=== PATIENT | male | born 2000 | race Caucasian/White ===

== ENCOUNTER 2024-10-24 02:43 | Emergency (ER) | payer MEDICAID, SELFPAY ==
[2024-10-24] VITALS (11 sets, daily range): BP systolic 126–161; BP diastolic 87–106; PULSE 77–97; RESP 12–20; TEMP 36.8–37.1; O2SAT 98–100; BMI 30.5
--- NOTE | 2024-10-24 02:51 | XR_ITS ---
PROCEDURE INFORMATION: Exam: XR Chest Exam date and time: 10/24/2024 3:09 AM Age: 23 years old Clinical indication: Pain; Chest pressure; Additional info: Cp 8 hours ago TECHNIQUE: Imaging protocol: Radiologic exam of the chest. Views: 1 view. COMPARISON: No relevant prior studies available. FINDINGS: Lungs: Unremarkable. No consolidation. Pleural spaces: Unremarkable. No pleural effusion. No pneumothorax. Heart/Mediastinum: Unremarkable. No cardiomegaly. Bones/joints: Unremarkable. IMPRESSION: No acute findings.
--- NOTE | 2024-10-24 02:54 | ED_ITS ---
Discharge Plan Disposition Patient Disposition: Home, Self-Care Condition: Good Prescriptions Prescriptions: New levetiracetam [Keppra] 750 mg tablet 750 mg PO BID 10 Days Qty: 20 0RF Activity Restrictions/Add. Instructions Additional Instructions/Restrictions: You were evaluated in the ER and are appropriate for discharge at this time. Take the prescribed levetiracetam as directed. In the future, never skip doses or stop taking the medication unless directed by your neurologist. couples therapist the prescription and start taking it immediately. Call your neurologist for follow-up. Return to the ER with new, worsening, or otherwise concerning symptoms. Clinical Impressions Clinical Impression: Seizure, Noncompliance with medication regimen Instructions Patient Instructions: DI for Seizure Disorder -- Adult Print Language Print Language: Argentine Discharge ED Provider: Gely Carey Adult HPI General Chief complaint: Seizure Stated complaint: Seizure Time Seen by Provider: 10/24/24 02:45 Mode of Arrival: Ambulatory Source of Information: Patient Limitations: No Limitations Description of Symptoms (Recalled from ER Triage Doc. by RN): PT C/O SEIZURE LASTING APPROX 5-6 MIN, WITNESSED BY SIGNIFICANT OTHER. SEIZURE STARTED WHILE IN SITTING POSITION, DENIES HITTING HEAD. PT NONCOMPLIANT WITH MEDICATION. PT POSTICTAL, A&OX4 History of Present Illness HPI narrative: 23-year-old male with known history of seizure who is supposed to take daily Keppra presents to the ER for concern of generalized tonic-clonic seizure activity lasting 5 to 6 minutes. Patient had postictal period but is recovering. Reportedly did not hit his head according to bystanders were present at bedside. Reportedly patient has not been taking his Keppra recently because he had not had seizures in many years and did not think he needed it. He had 1 episode of seizure yesterday, when he had seizure tonight, family made him come to the ER for evaluation. Patient denies any recent illness. Family reports patient had been intermittently complaining of chest pain yesterday as well as approximately 8 hours prior to arrival. Reportedly the chest pain is not associated with anything specific and he is not actively having chest pain. No cough, congestion, difficulty breathing, fevers, chills, vomiting, diarrhea, or other associated symptoms. Patient has been eating and drinking normally. No other concerns. Related Data Previous Rx's ?Medication ?Instructions ?Recorded levetiracetam 750 mg tablet 750 mg PO BID 10 days #20 tabs 10/24/24 (Keppra) Allergies Allergy/AdvReac Type Severity Reaction Status Date / Time No Known Allergies Allergy Verified 10/24/24 02:53 [facility] Disclaimer: The information contained in this section may have been updated after the patient was seen, as this information can be updated by other users. Medical History (Updated 10/24/24 @ 03:28 by Gely Carey MD) Seizure Social History Smoking Status: Never smoker alcohol intake: never current occupational status: other Travel in the last 8 weeks: None ROS Obtained: Yes Systems reviewed as appropriate & no additional complaints except as documented Per HPI Physical Exam General General appearance: alert and in no apparent distress Head Head exam: atraumatic and normocephalic Eye Eye exam: Present PERRL and EOMI ENT ENT exam: Present mucous membranes moist Neck Neck exam: Present normal inspection and full ROM Chest Chest inspection: Present symmetric chest wall rise Respiratory Respiratory exam: Present normal lung sounds bilaterally; Absent respiratory distress, wheezes or stridor Cardiovascular Cardiovascular exam: Present regular rate and normal rhythm Abdominal Exam Abdominal exam: Present soft; Absent distention, tenderness, guarding or rebound Extremities Exam Extremities exam: Present full ROM; Absent tenderness, edema or joint swelling Neurological Exam Neurological exam: Present alert, oriented X3, normal gait and other (Ambulated independently into the ER); Absent motor sensory deficit Psychiatric Psychiatric exam: Present normal affect and normal mood Skin Skin exam: Present warm and dry Medical Decision Making Medical Records Screening: Per USPSTF and CDC recommendations, given the prevalence of disease in our region, it is our hospital?s policy to screen for HIV and viral Hepatitis for all patients aged 18 and over and those with ongoing risk factors. Jim Inquiry Pt receiving controlled substance: No Vital Signs: 10/24/24 02:43 10/24/24 02:50 10/24/24 02:55 Temperature 98.7 F Temperature Source Tympanic Pulse Rate 86 77 Pulse Rate [Apical] 95 H Respiratory Rate 20 16 14 Blood Pressure 145/106 H 132/90 Blood Pressure [Right Arm] 161/101 H Blood Pressure Mean [Right Arm] 121 Blood Pressure Source Blood Pressure Position 02 Sat by Pulse Oximetry 99 99 98 Oxygen Delivery Method Room Air Room Air Room Air 10/24/24 03:00 10/24/24 03:05 10/24/24 03:10 Temperature Temperature Source Pulse Rate 81 84 89 Pulse Rate [Apical] Respiratory Rate 13 12 16 Blood Pressure 142/95 H 133/96 H 126/100 H Blood Pressure [Right Arm] Blood Pressure Mean [Right Arm] Blood Pressure Source Blood Pressure Position 02 Sat by Pulse Oximetry 98 99 99 Oxygen Delivery Method Room Air Room Air Room Air 10/24/24 03:29 Temperature 98.2 F Temperature Source Oral Pulse Rate 88 Pulse Rate [Apical] Respiratory Rate 20 Blood Pressure 141/95 H Blood Pressure [Right Arm] Blood Pressure Mean [Right Arm] Blood Pressure Source Automatic Cuff Blood Pressure Position Supine 02 Sat by Pulse Oximetry Oxygen Delivery Method Room Air Lab Data Lab Results 10/24/24 02:45: WBC 7.9, RBC 5.60, Hgb 16.1, Hct 48.3, MCV 86.3, MCH 28.8, MCHC 33.3, RDW 12.7, Plt Count 366, MPV 8.6, Neut % (Auto) 58.8, Lymph % (Auto) 29.0, [place] % (Auto) 8.7, Eos % (Auto) 2.4, Baso % (Auto) 0.8, Neut # (Auto) 4.7, Lymph # (Auto) 2.3, [place] # (Auto) 0.7, Eos # (Auto) 0.2, Baso # (Auto) 0.1, Sodium 140, Potassium 3.9, Chloride 97 L, Carbon Dioxide 30, Anion Gap 16.9 H, BUN 19, Creatinine 0.70, Estimated Creat Clear 210, Estimated GFR 139, Est GFR ( Amer) 168, Glucose 105 H, Calcium 9.9, Total Bilirubin 0.5, AST 40, ALT 53, Alkaline Phosphatase 84, Troponin I < 0.01, Total Protein 8.2, Albumin 5.2 H, Globulin 3.0, Albumin/Globulin Ratio 1.7 10/24/24 02:45 10/24/24 02:45 Orders (Tests/Meds): ED MEDICATIONS Discontinued Medications Generic Name Dose Route Start Last Admin Trade Name Freq PRN Reason Stop Dose Admin Levetiracetam 2,000 mg/ Sodium 120 mls @ 240 mls/hr 10/24/24 02:52 10/24/24 02:58 Chloride IV 10/24/24 02:53 240 mls/hr ONCE ONE Administration ORDERS Category Date Time Status CXR --portable [XR chest portable] Stat Exams 10/24/24 02:51 Taken CBC w/Auto Diff [Complete Blood Count Auto Diff] Stat Lab 10/24/24 02:45 Completed CMP [Comprehensive Metabolic Panel] Stat Lab 10/24/24 02:45 Completed Trop I [Troponin I] Stat Lab 10/24/24 02:45 Completed Troponin I Q3H Lab 10/24/24 06:00 Ordered Troponin I Q3H Lab 10/24/24 09:00 Ordered ECG Request Stat Y 10/24/24 02:51 Completed Medical Decision Narrative: In summary, this 23-year-old male with known seizure history who has been noncompliant with medication recently presents to the emergency department today with seizure activity. On initial evaluation patient is hemodynamically stable, afebrile, GCS 15, no neurologic deficits, physical exam overall is benign, he reportedly had chest pain 8 hours or more prior to arrival and has not had pain since. No other complaints or concerns. Patient has benign cardiopulmonary exam, no neurologic abnormalities, no abnormalities identified on exam overall. Differential diagnosis includes but is not limited to medication noncompliance, breakthrough seizure, I considered electrolyte abnormality, ACS, esophageal spasm, pneumothorax, pneumonia, I considered PE but patient is PERC negative and further PE workup is not indicated. Denies illicit substances but this was also considered. Based on these concerns, I ordered serum labs, chest x-ray, EKG. Family at bedside provided a picture of patient's home medication which is levetiracetam 750 mg twice daily. Reportedly they are traveling from out of town and will not be back home until Wednesday. ECG personally interpreted demonstrates normal sinus rhythm, rate 76, normal axis, normal NH and QTc, no STEMI. Patient received IV Keppra for treatment. Labs personally reviewed demonstrate Normal CBC, CMP nonactionable, troponin undetectably low which is significantly reassuring in the setting of normal EKG, no recent chest pain, no ongoing chest pain, and low suspicion for cardiac etiology. Do not believe serial troponins are indicated at this time. Chest x-ray personally interpreted does not demonstrate acute intrathoracic abnormality, see radiology read for final interpretation. On reassessment, patient tolerated the IV Keppra well, he is resting comfortably, no additional seizure activity, no chest pain. Workup is reassuring. Since patient is traveling from out of town and does not have access to his home medication at this time and will not for multiple more days, I prescribed a short course of his home dose levetiracetam for him to flower buncher or picker the local pharmacy that they chose. Patient and family are comfortable with this plan. He was given instructions to avoid driving, bathing, swimming, etc., standard seizure precautions. Also given explicit instructions to take the levetiracetam as prescribed as well as to call his neurologist for outpatient follow-up, he also received strict return precautions for the ER. Patient decayed understanding and was discharged in stable condition. Critical Care Critical Care Time Critical Care Time: No
[2024-10-24 02:58] LABS: Basophils # 0.1 K/mm3 (0-0.2); Basophils % 0.8 % (0.1-2.0); Eosinophils # 0.2 K/mm3 (0.0-0.4); Eosinophils % 2.4 % (0.1-12.0); Hematocrit 48.3 % (42.0-52.0); Hemoglobin 16.1 g/dL (14.1-18.0); Lymphocytes # 2.3 K/mm3 (0.7-4.5); Mean Corpuscular HGB Conc 33.3 g/dL (31.8-35.4); Mean Corpuscular Hemoglobin 28.8 pg (27.0-31.2); Mean Corpuscular Volume 86.3 fl (80-94); Mean Platelet Volume 8.6 fl (7.4-10.4); Monocytes # 0.7 K/mm3 (0.1-1.0); Monocytes % 8.7 % (1.7-9.3); Neutrophils # 4.7 K/mm3 (1.8-7.8); Neutrophils % 58.8 % (37.0-80.0); Platelet Count 366 K/mm3 (142-424); Red Cell Distribution Width 12.7 % (11.5-17.5); White Blood Count 7.9 K/mm3 (4.8-10.8)
[2024-10-24] MEDS: levETIRAcetam 2,000 MG in 0.9 % SODIUM CHLORIDE 100 ML 240 MG IV (02:58)
[2024-10-24 03:04] LABS: Alanine Aminotransferase 53 U/L (12-78); Albumin Level 5.2 g/dl (3.5-5.0); Albumin/Globulin Ratio 1.7 (1.1-1.8); Alkaline Phosphatase 84 U/L (38-126); Anion Gap 16.9 mEq/L (5-15); Aspartate Amino Transferase 40 U/L (17-59); Bilirubin,Total 0.5 mg/dl (0.2-1.3); Blood Urea Nitrogen 19 mg/dl (9-20); Calcium 9.9 mg/dl (8.4-10.2); Carbon Dioxide 30 mmol/L (22.0-30.0); Chloride 97 mmol/L (98-107); Creatinine Clearance Estimated 210 mL/min (50-200); Estimated Glomerular Filt Rate 139 ml/min (>60); GFR (African American) 168 ML/MIN (>60); Glucose 105 mg/dl (74-100); Potassium 3.9 mmoL/L (3.5-5.1); Sodium 140 mmol/L (136-145); Total Protein,Serum 8.2 g/dl (6.3-8.2)
--- NOTE | 2024-10-24 03:06 | ECG_ITS ---
APPROVED REPORT Exam: Resting ECG HR:76 bpm ECG Measurements Heart Rate 76 AXES IN 157 P 38 QRSd 91 QRS 16 QT 359 T 21 QTc 389 Conclusion SINUS RHYTHM NORMAL ECG Electronically signed by : AMRITA MENDOZA, 10/24/2024 06:55:20
--- NOTE | 2024-10-24 03:10 | PC.NURSE ---
PT WAS PLACED ON SEIZURE PRECAUTIONS STARTING AT 0243 DURING TRIAGE. PADDING BUCK TO SIDE RAILS, SUCTION SET UP AND WORKING APPROPRIATELY, ON [employer] SALES REPRESENTATIVE, CALL LIGHT WITHIN REACH. FAMILY PRESENT AT BEDSIDE. PT HAS NO COMPLAINTS AT THIS TIME AND IS RESTING COMFORTABLY. PROVIDER AWARE
[2024-10-24 03:16] LABS: Troponin I < 0.01 ng/ml (0.00-0.034)
--- NOTE | 2024-10-24 03:33 | PC.NURSE ---
Pt's IV D/C'd Catheter intact bleeding controlled
== END 2024-10-24 03:34 | disposition home or self-care (01) ==
PROVIDERS: Emergency Provider Emergency Medicine
DX: R56.9 Unspecified convulsions (principal); Z91.148 Patient's other noncompliance with medication regimen for other reason
CPT/HCPCS: 71045; 80053; 84484; 85025; 93005; 96374; 99283; J1953

== ENCOUNTER 2024-10-25 06:13 | Emergency (ER) | payer MEDICAID, SELFPAY ==
[2024-10-25] VITALS (7 sets, daily range): BP systolic 121–153; BP diastolic 82–95; PULSE 77–99; RESP 15–29; TEMP 36.7–36.8; O2SAT 98–100; BMI 26.9
--- NOTE | 2024-10-25 06:10 | CT_ITS ---
FINAL REPORT TECHNIQUE: Thin section axial images were obtained from skull base to vertex without contrast. Coronal and sagittal reconstruction images were obtained from the axial data. Exam was performed using dose reduction techniques such as automated exposure control, adjustment of the mA and kV according to patient size, and use of iterative reconstruction technique. CLINICAL HISTORY: sz x 2 days COMPARISON: None FINDINGS: There is no mass effect or midline shift. There is no hydrocephalus. There is no intracranial hemorrhage. The posterior fossa is without acute abnormality. The basilar cisterns are preserved. The soft tissues are without acute abnormality. No acute osseous abnormality is identified. IMPRESSION: No acute intracranial abnormality. Reviewed, Interpreted and Dictated by Benita Block MD Transcribed by Rachel Thurman Authenticated and [facility]
--- NOTE | 2024-10-25 06:17 | HMH.EDGENADL ---
Discharge Plan Disposition Patient Disposition: Home, Self-Care Condition: Good Prescriptions Prescriptions: No Action levetiracetam [Keppra] 750 mg tablet 750 mg PO BID 10 Days Qty: 20 0RF Activity Restrictions/Add. Instructions Additional Instructions/Restrictions: You were evaluated in the emergency department today. Please make sure that you take your medication and do not miss any doses. Make sure you get good sleep. Avoid excess caffeine, alcohol, or drug use, as this can precipitate seizures. Do not drive or operate heavy machinery until you have been cleared by your neurologist. Avoid dangerous activities, such as rockclimbing, swimming alone. Take showers instead of baths. Return to the emergency department right away for new or worsening symptoms. Clinical Impressions Clinical Impression: Seizure Stand Alone Forms Stand Alone Forms: Work/School Release Instructions Patient Instructions: DI for Seizure Disorder -- Adult Print Language Print Language: Tanzanian Discharge ED Provider: Areli Saenz General Adult HPI <Gely Carey MD - Last Filed: 10/25/24 07:11> General Chief complaint: Seizure Stated complaint: seizure Time Seen by Provider: 10/25/24 06:15 History of Present Illness HPI narrative: 23-year-old male presents to the ER with 5-minute generalized tonic-clonic activity witnessed by family. Patient presented for the same thing yesterday and I evaluated him at that time as well. Today patient presented by EMS. EMS reports they found the patient postictal sitting on the couch. Reportedly he did not fall or strike his head. EMS reports initially he was unresponsive and gradually being more responsive and route. They were able to obtain IV access and patient had good vitals in route. No medications were administered by EMS. EMS reported patient had had poor compliance with his levetiracetam recently which had also been explained to me by family yesterday. EMS provided his levetiracetam prescription which they had picked up yesterday, 18 of the 20 pills are still there so he has taken 2 doses since the time of discharge. Patient's fisiobhan? presented to bedside and explained that everything this morning was the same as it was yesterday. She states the patient took 1 dose of levetiracetam yesterday evening, and 1 dose this morning. She reports that they have had an abnormal sleep schedule, being up all night and then sleeping during the day. Reportedly they just cannot sleep while visiting family. She also reports they would normally go to bed around midnight or 1 AM. She denies any alcohol or other illicit drug use. Patient was becoming more responsive and indicated he was having abdominal pain. No vomiting or diarrhea. He is belching. He complains of no other pain, no other concerns. Related Data Previous Rx's ?Medication ?Instructions ?Recorded levetiracetam 750 mg tablet 750 mg PO BID 10 days #20 tabs 10/24/24 (Keppra) Allergies Allergy/AdvReac Type Severity Reaction Status Date / Time No Known Allergies Allergy Verified 10/25/24 07:24 [facility] <Gely Carey MD - Last Filed: 10/25/24 07:11> [facility] Disclaimer: The information contained in this section may have been updated after the patient was seen, as this information can be updated by other users. Medical History (Updated 10/25/24 @ 07:10 by Gely Carey MD) Seizure Social History Smoking Status: Never smoker alcohol intake: never current occupational status: other Travel in the last 8 weeks: None Have you lived/traveled outside US in past 30 days?: No Contact w/someone who lives/traveled outside US past 30 days?: No Exposure to someone with infectious disease in past 14 days?: No Do you have a fever (greater than 100.4 F or 38 C)?: No Have you tested positive for COVID-19: No Exposed to someone with COVID-19 in past 14 days?: No Do you have a sore throat?: No Do you have a cough?: No Do you have any weakness?: No Do you have any diarrhea?: No Are you experiencing any unusual bleeding?: No Do you have any muscle aches/pain?: No Do you have any abdominal pain?: No Are you experiencing loss of taste or smell?: No <Gely Carey MD - Last Filed: 10/25/24 07:11> ROS Obtained: Yes Systems reviewed as appropriate & no additional complaints except as documented per HPI Physical Exam <Gely Carey MD - Last Filed: 10/25/24 07:11> General General appearance: alert and in no apparent distress Comment: Patient is alert but appears sleepy Head Head exam: atraumatic and normocephalic Eye Eye exam: Present PERRL (Pupils 3 mm, reactive) and EOMI ENT ENT exam: Present mucous membranes moist Neck Neck exam: Present normal inspection and full ROM Chest Chest inspection: Present symmetric chest wall rise; Absent tenderness Respiratory Respiratory exam: Present normal lung sounds bilaterally; Absent respiratory distress, wheezes or stridor Cardiovascular Cardiovascular exam: Present regular rate and normal rhythm Abdominal Exam Abdominal exam: Present soft; Absent distention, tenderness, guarding or rebound Comment: Patient reports mid abdominal pain but has no tenderness, guarding, rebound, or distention. Extremities Exam Extremities exam: Present full ROM; Absent edema Neurological Exam Neurological exam: Present alert, oriented X3 (Disoriented on arrival shortly after arrival was fully oriented) and other (GCS on arrival 14, shortly after arrival GCS 15.); Absent motor sensory deficit Psychiatric Psychiatric exam: Present normal affect and normal mood Skin Skin exam: Present warm and dry Medical Decision Making <Gely Carey MD - Last Filed: 10/25/24 07:11> Medical Records Screening: Per USPSTF and CDC recommendations, given the prevalence of disease in our region, it is our hospital?s policy to screen for HIV and viral Hepatitis for all patients aged 18 and over and those with ongoing risk factors. Jim Inquiry Pt receiving controlled substance: No Vital Signs: 10/25/24 06:12 10/25/24 06:30 10/25/24 07:00 Temperature 98.3 F Temperature Source Oral Pulse Rate 99 H 98 H Pulse Rate [Apical] 92 H Respiratory Rate 20 18 22 Blood Pressure 142/84 H 153/89 H Blood Pressure [Right Arm] 142/95 H Blood Pressure Mean [Right Arm] 110 02 Sat by Pulse Oximetry 100 98 99 Oxygen Delivery Method Nasal Cannula Room Air Oxygen Flow Rate (LPM) 2 10/25/24 07:30 10/25/24 08:00 10/25/24 08:31 Temperature Temperature Source Pulse Rate 91 H 86 77 Pulse Rate [Apical] Respiratory Rate 29 H 22 17 Blood Pressure 131/82 150/84 H 121/83 Blood Pressure [Right Arm] Blood Pressure Mean [Right Arm] 02 Sat by Pulse Oximetry 98 98 98 Oxygen Delivery Method Room Air Room Air Room Air Oxygen Flow Rate (LPM) Lab Data Lab Results 10/25/24 06:10: WBC 7.8, RBC 5.67, Hgb 16.0, Hct 48.3, MCV 85.2, MCH 28.2, MCHC 33.1, RDW 12.5, Plt Count 369, MPV 8.7, Neut % (Auto) 51.8, Lymph % (Auto) 36.1, [place] % (Auto) 8.2, Eos % (Auto) 3.1, Baso % (Auto) 0.5, Neut # (Auto) 4.1, Lymph # (Auto) 2.8, [place] # (Auto) 0.6, Eos # (Auto) 0.2, Baso # (Auto) 0.0, Sodium 139, Potassium 4.0, Chloride 101, Carbon Dioxide 31 H, Anion Gap 11.0, BUN 18, Creatinine 0.80, Estimated Creat Clear 162, Estimated GFR 119, Est GFR ( Amer) 144, Glucose 183 H, Lactate 1.5, Calcium 9.7, Total Bilirubin 0.4, AST 39, ALT 56, Alkaline Phosphatase 84, Troponin I < 0.01, Total Protein 7.9, Albumin 4.8, Globulin 3.1, Albumin/Globulin Ratio 1.5, Lipase 63, Plasma/Serum Alcohol < 10 10/25/24 06:31: Urine Color Yellow, Urine Appearance Clear, Urine pH 6.5, Ur Specific [place] 1.025, Urine Protein Trace, Urine Glucose (UA) Trace, Urine Ketones Negative, Urine Blood Negative, Urine Nitrate Negative, Urine Bilirubin Negative, Urine Urobilinogen 1.0, Ur Leukocyte Esterase Negative, Urine RBC Occasional, Urine WBC 3-5, Ur Squamous Epith Cells Occasional, Urine Bacteria None, Urine Mucus Trace, Urine Opiates Screen Negative, Urine Methadone Screen Negative, Ur Barbituates Screen Negative, Ur Phencyclidine Scrn Negative, Ur Amphetamines Screen Negative, U Benzodiazepines Scrn Negative, Urine Cocaine Screen Negative, U Marijuana (THC) Screen Negative 10/25/24 06:10 10/25/24 06:10 Orders (Tests/Meds): ED MEDICATIONS Generic Name Dose Route Start Last Admin Trade Name Freq PRN Reason Stop Dose Admin Sodium Chloride 10 ml 10/25/24 07:47 10/25/24 07:47 Sodium Chloride 0.9% 10ml Syr (Rad Only) IV 11/24/24 07:46 10 ml NEEDED PRN Administration Maintain IV Site Discontinued Medications Generic Name Dose Route Start Last Admin Trade Name Ca PRN Reason Stop Dose Admin Levetiracetam 4,500 mg/ Sodium 145 mls @ 290 mls/hr 10/25/24 06:10 10/25/24 06:29 Chloride IV 10/25/24 06:11 Not Given ONCE ONE Lactated Ringer's 1,000 mls @ 999 mls/hr 10/25/24 06:10 10/25/24 06:27 Lactated Ringer's 1000 Ml Bag IV 10/25/24 07:10 999 mls/hr .Q1H1M ONE Administration Levetiracetam 3,750 mg/ Sodium 137.5 mls @ 290 mls/hr 10/25/24 06:25 10/25/24 06:28 Chloride IV 10/25/24 06:38 290 mls/hr ONCE ONE Administration Iopamidol 75 ml 10/25/24 07:47 10/25/24 07:47 Iopamidol-370 (76%);100ml Bottle IV 10/25/24 07:48 75 ml ONCE ONE Administration Ondansetron HCl 4 mg 10/25/24 06:10 10/25/24 06:27 Ondansetron 4mg/2ml Vial IV 10/25/24 06:11 4 mg ONCE ONE Administration ORDERS Category Date Time Status CT abdomen pelvis w con Stat Cat Scan 10/25/24 07:[address] head/brain wo con Stat Cat Scan 10/25/24 06:10 Completed CXR --portable [XR chest portable] Stat Exams 10/25/24 06:29 Completed CBC w/Auto Diff [Complete Blood Count Auto Diff] Stat Lab 10/25/24 06:10 Completed CMP [Comprehensive Metabolic Panel] Stat Lab 10/25/24 06:10 Completed Ethanol [Ethyl Alcohol] Stat Lab 10/25/24 06:10 Completed Lactic Acid Stat Lab 10/25/24 06:10 Completed Lipase Stat Lab 10/25/24 06:10 Completed Trop I [Troponin I] Stat Lab 10/25/24 06:10 Completed Troponin I Q3H Lab 10/25/24 09:30 Ordered Troponin I Q3H Lab 10/25/24 12:30 Ordered UDS [Drug Screen,Urine] Stat Lab 10/25/24 06:31 Completed Urinalysis and Microscopic Stat Lab 10/25/24 06:31 Completed ECG Request Stat Y 10/25/24 06:29 Ordered Medical Decision Narrative: In summary, this 23-year-old male with known seizure disorder who has had recent noncompliance with medications until starting to take it again yesterday presents to the emergency department today with 5 minutes of generalized tonic-clonic activity and postictal period, complaint of abdominal pain. On initial evaluation patient is hemodynamically stable, afebrile, his GCS on arrival was 14, but before the end of my exam was 15. EMS reported they initially found him as a GCS 11. He has no localizing neurologic deficits, despite complaining of abdominal pain his abdomen is soft, nontender, nondistended. He has belching. Cardiopulmonary exam benign. Differential diagnosis includes but is not limited to recent noncompliance with medication, lowered seizure threshold secondary to poor sleep hygiene, also considered viral syndrome, enteritis, electrolyte abnormality, intracranial abnormality such as bleed, mass, or midline shift, I considered illicit substance use, alcohol use, urinary tract infection, consider the possibility of arrhythmia, atypical presentation of ACS, pneumonia or aspiration pneumonitis. Based on these concerns, I ordered serum labs, CT head, CT abdomen pelvis. ECG personally interpreted demonstrates sinus rhythm, rate 82, normal axis, normal AL and QTc, no STEMI. ECG unchanged from yesterday Patient received IV Keppra load initially for treatment. Patient had taken 750 mg of oral Keppra prior to arrival before his seizure, so an additional 3750 mg were administered for a full 4500 mg dose this morning. Labs personally reviewed demonstrate no leukocytosis, WBC stable from yesterday, CBC is normal, CMP with no actionable abnormalities, patient does have hyperglycemia with glucose 183, nonspecific and nonactionable at this time. Lipase normal at 63, lactic normal at 1.5. UA negative for findings of infection. XR personally interpreted demonstrates chest x-ray personally interpreted does not demonstrate lobar infiltrate, no obvious evidence of aspiration pneumonitis, unchanged from yesterday. CT imaging personally interpreted demonstrate no acute intracranial abnormality, radiology read pending. CT abdomen pelvis pending. On reassessment patient continues to be a GCS 15, no further seizure activity. Parents presented to bedside. Mom reports patient was told by his neurologist to only take the levetiracetam as needed and we discussed that this is not an appropriate way to use levetiracetam. She is trying to find the neurologist's name. Patient handed off to Dr. Saenz in stable condition pending UDS, troponin, EtOH, CT head results, CT abdomen pelvis. <Areli Saenz, DO - Last Filed: 10/25/24 08:52> Vital Signs: 10/25/24 06:12 10/25/24 06:30 10/25/24 07:00 Temperature 98.3 F Temperature Source Oral Pulse Rate 99 H 98 H Pulse Rate [Apical] 92 H Respiratory Rate 20 18 22 Blood Pressure 142/84 H 153/89 H Blood Pressure [Right Arm] 142/95 H Blood Pressure Mean [Right Arm] 110 02 Sat by Pulse Oximetry 100 98 99 Oxygen Delivery Method Nasal Cannula Room Air Oxygen Flow Rate (LPM) 2 10/25/24 07:30 10/25/24 08:00 10/25/24 08:31 Temperature Temperature Source Pulse Rate 91 H 86 77 Pulse Rate [Apical] Respiratory Rate 29 H 22 17 Blood Pressure 131/82 150/84 H 121/83 Blood Pressure [Right Arm] Blood Pressure Mean [Right Arm] 02 Sat by Pulse Oximetry 98 98 98 Oxygen Delivery Method Room Air Room Air Room Air Oxygen Flow Rate (LPM) Lab Data Lab Results 10/25/24 06:10: WBC 7.8, RBC 5.67, Hgb 16.0, Hct 48.3, MCV 85.2, MCH 28.2, MCHC 33.1, RDW 12.5, Plt Count 369, MPV 8.7, Neut % (Auto) 51.8, Lymph % (Auto) 36.1, [place] % (Auto) 8.2, Eos % (Auto) 3.1, Baso % (Auto) 0.5, Neut # (Auto) 4.1, Lymph # (Auto) 2.8, [place] # (Auto) 0.6, Eos # (Auto) 0.2, Baso # (Auto) 0.0, Sodium 139, Potassium 4.0, Chloride 101, Carbon Dioxide 31 H, Anion Gap 11.0, BUN 18, Creatinine 0.80, Estimated Creat Clear 162, Estimated GFR 119, Est GFR ( Amer) 144, Glucose 183 H, Lactate 1.5, Calcium 9.7, Total Bilirubin 0.4, AST 39, ALT 56, Alkaline Phosphatase 84, Troponin I < 0.01, Total Protein 7.9, Albumin 4.8, Globulin 3.1, Albumin/Globulin Ratio 1.5, Lipase 63, Plasma/Serum Alcohol < 10 10/25/24 06:31: Urine Color Yellow, Urine Appearance Clear, Urine pH 6.5, Ur Specific [place] 1.025, Urine Protein Trace, Urine Glucose (UA) Trace, Urine Ketones Negative, Urine Blood Negative, Urine Nitrate Negative, Urine Bilirubin Negative, Urine Urobilinogen 1.0, Ur Leukocyte Esterase Negative, Urine RBC Occasional, Urine WBC 3-5, Ur Squamous Epith Cells Occasional, Urine Bacteria None, Urine Mucus Trace, Urine Opiates Screen Negative, Urine Methadone Screen Negative, Ur Barbituates Screen Negative, Ur Phencyclidine Scrn Negative, Ur Amphetamines Screen Negative, U Benzodiazepines Scrn Negative, Urine Cocaine Screen Negative, U Marijuana (THC) Screen Negative Orders (Tests/Meds): ED MEDICATIONS Generic Name Dose Route Start Last Admin Trade Name Freq PRN Reason Stop Dose Admin Sodium Chloride 10 ml 10/25/24 07:47 10/25/24 07:47 Sodium Chloride 0.9% 10ml Syr (Rad Only) IV 11/24/24 07:46 10 ml NEEDED PRN Administration Maintain IV Site Discontinued Medications Generic Name Dose Route Start Last Admin Trade Name Freq PRN Reason Stop Dose Admin Levetiracetam 4,500 mg/ Sodium 145 mls @ 290 mls/hr 10/25/24 06:10 10/25/24 06:29 Chloride IV 10/25/24 06:11 Not Given ONCE ONE Lactated Ringer's 1,000 mls @ 999 mls/hr 10/25/24 06:10 10/25/24 06:27 Lactated Ringer's 1000 Ml Bag IV 10/25/24 07:10 999 mls/hr .Q1H1M ONE Administration Levetiracetam 3,750 mg/ Sodium 137.5 mls @ 290 mls/hr 10/25/24 06:25 10/25/24 06:28 Chloride IV 10/25/24 06:38 290 mls/hr ONCE ONE Administration Iopamidol 75 ml 10/25/24 07:47 10/25/24 07:47 Iopamidol-370 (76%);100ml Bottle IV 10/25/24 07:48 75 ml ONCE ONE Administration Ondansetron HCl 4 mg 10/25/24 06:10 10/25/24 06:27 Ondansetron 4mg/2ml Vial IV 10/25/24 06:11 4 mg ONCE ONE Administration ORDERS Category Date Time Status CT abdomen pelvis w con Stat Cat Scan 10/25/24 07:[address] head/brain wo con Stat Cat Scan 10/25/24 06:10 Completed CXR --portable [XR chest portable] Stat Exams 10/25/24 06:29 Completed CBC w/Auto Diff [Complete Blood Count Auto Diff] Stat Lab 10/25/24 06:10 Completed CMP [Comprehensive Metabolic Panel] Stat Lab 10/25/24 06:10 Completed Ethanol [Ethyl Alcohol] Stat Lab 10/25/24 06:10 Completed Lactic Acid Stat Lab 10/25/24 06:10 Completed Lipase Stat Lab 10/25/24 06:10 Completed Trop I [Troponin I] Stat Lab 10/25/24 06:10 Completed Troponin I Q3H Lab 10/25/24 09:30 Ordered Troponin I Q3H Lab 10/25/24 12:30 Ordered UDS [Drug Screen,Urine] Stat Lab 10/25/24 06:31 Completed Urinalysis and Microscopic Stat Lab 10/25/24 06:31 Completed ECG Request Stat Y 10/25/24 06:29 Ordered Medical Decision Narrative: In summary, this 23-year-old male with known seizure disorder who has had recent noncompliance with medications until starting to take it again yesterday presents to the emergency department today with 5 minutes of generalized tonic-clonic activity and postictal period, complaint of abdominal pain. On initial evaluation patient is hemodynamically stable, afebrile, his GCS on arrival was 14, but before the end of my exam was 15. EMS reported they initially found him as a GCS 11. He has no localizing neurologic deficits, despite complaining of abdominal pain his abdomen is soft, nontender, nondistended. He has belching. Cardiopulmonary exam benign. Differential diagnosis includes but is not limited to recent noncompliance with medication, lowered seizure threshold secondary to poor sleep hygiene, also considered viral syndrome, enteritis, electrolyte abnormality, intracranial abnormality such as bleed, mass, or midline shift, I considered illicit substance use, alcohol use, urinary tract infection, consider the possibility of arrhythmia, atypical presentation of ACS, pneumonia or aspiration pneumonitis. Based on these concerns, I ordered serum labs, CT head, CT abdomen pelvis. ECG personally interpreted demonstrates sinus rhythm, rate 82, normal axis, normal AL and QTc, no STEMI. ECG unchanged from yesterday Patient received IV Keppra load initially for treatment. Patient had taken 750 mg of oral Keppra prior to arrival before his seizure, so an additional 3750 mg were administered for a full 4500 mg dose this morning. Labs personally reviewed demonstrate no leukocytosis, WBC stable from yesterday, CBC is normal, CMP with no actionable abnormalities, patient does have hyperglycemia with glucose 183, nonspecific and nonactionable at this time. Lipase normal at 63, lactic normal at 1.5. UA negative for findings of infection. XR personally interpreted demonstrates chest x-ray personally interpreted does not demonstrate lobar infiltrate, no obvious evidence of aspiration pneumonitis, unchanged from yesterday. CT imaging personally interpreted demonstrate no acute intracranial abnormality, radiology read pending. CT abdomen pelvis pending. On reassessment patient continues to be a GCS 15, no further seizure activity. Parents presented to bedside. Mom reports patient was told by his neurologist to only take the levetiracetam as needed and we discussed that this is not an appropriate way to use levetiracetam. She is trying to find the neurologist's name. Patient handed off to Dr. Saenz in stable condition pending UDS, troponin, EtOH, CT head results, CT abdomen pelvis. DO Dany: I assumed care of the patient at 7:00 AM. On my assessment, he is resting comfortably and is neurologically intact with no recurrence of seizure activity while here in the emergency department. CBC reassuring with no significant leukocytosis, normal hemoglobin, normal platelet count. Chemistry reassuring with no significant electrolyte derangements such as hyponatremia or hypokalemia. Glucose mildly elevated at 183. Lactic acid normal. Urine clean, not concerning for infection, UDS negative. I independently interpreted x-ray prior to radiology read and noted no large focal consolidation concerning for pneumonia. Radiology noted possible concern for hilar consolidation, however I independently interpreted CT scan of the belly and looked at the lungs on the scan, I did not note any lung consolidation. He has no cough or adventitious lung sounds on exam. I independently turbid CT scan of the belly and noted no obvious infectious process or obstructive process. He has had no recurrence of seizure activity, workup is overall very reassuring, he looks great on exam with normal vitals on cardiac telemetry. Given this, I do feel that he is appropriate for discharge with instructions to take his Keppra strictly as prescribed as opposed to skipping doses and only taking as needed. I also advised that they follow-up very closely with his primary care provider and neurologist. They expressed understanding and agreement. Seizure precautions were given, patient was discharged after all questions were answered with very strict return precautions Critical Care <Gely Carey MD - Last Filed: 10/25/24 07:11> Critical Care Time Critical Care Time: No
[2024-10-25 06:24] LABS: Basophils % 0.5 % (0.1-2.0); Eosinophils # 0.2 K/mm3 (0.0-0.4); Eosinophils % 3.1 % (0.1-12.0); Hematocrit 48.3 % (42.0-52.0); Lymphocytes # 2.8 K/mm3 (0.7-4.5); Lymphocytes % 36.1 % (10-50); Mean Corpuscular HGB Conc 33.1 g/dL (31.8-35.4); Mean Corpuscular Hemoglobin 28.2 pg (27.0-31.2); Mean Corpuscular Volume 85.2 fl (80-94); Mean Platelet Volume 8.7 fl (7.4-10.4); Monocytes # 0.6 K/mm3 (0.1-1.0); Monocytes % 8.2 % (1.7-9.3); Neutrophils # 4.1 K/mm3 (1.8-7.8); Neutrophils % 51.8 % (37.0-80.0); Platelet Count 369 K/mm3 (142-424); Red Blood Count 5.67 M/mm3 (4.60-6.20); Red Cell Distribution Width 12.5 % (11.5-17.5); White Blood Count 7.8 K/mm3 (4.8-10.8)
[2024-10-25] MEDS: LACTATED RINGERS 1000ML 1,000 ML 999 ML IV (06:27)
[2024-10-25] MEDS: ONDANSETRON 4MG/2ML VIAL 4 MG IV (06:27)
[2024-10-25] MEDS: LEVETIRACETAM IV (06:28)
[2024-10-25] MEDS: SODIUM CHLORIDE 0.9% IV (06:28)
--- NOTE | 2024-10-25 06:29 | ECG_ITS ---
APPROVED REPORT Exam: Resting ECG HR:82 bpm ECG Measurements Heart Rate 82 AXES WV 153 P 41 QRSd 90 QRS 24 QT 352 T 14 QTc 390 Conclusion SINUS RHYTHM WITH SINUS ARRHYTHMIA Normal ECG Electronically signed by : AMRITA MENDOZA, 10/26/2024 07:21:06
--- NOTE | 2024-10-25 06:29 | XR_ITS ---
FINAL REPORT CLINICAL HISTORY: sz, belching, possible aspiration COMPARISON: 10/24/2024 FINDINGS: A single PA view of the chest was obtained. The cardiac and mediastinal silhouettes are within normal limits. There is left perihilar opacity. The lung volumes are low. The right lung is clear. There is no pleural effusion or pneumothorax. IMPRESSION: Low lung volumes with left perihilar opacity, pneumonia not excluded. Recommend upright PA and lateral chest x-ray. Reviewed, Interpreted and Dictated by Benita Block MD Transcribed by Rachel Thurman Authenticated and [facility]
[2024-10-25 06:34] LABS: Microscopic, Urine URINE MICROSCOPIC (MICROSCOPIC)
[2024-10-25 06:35] LABS: Albumin Level 4.8 g/dl (3.5-5.0); Chloride 101 mmol/L (98-107); Sodium 139 mmol/L (136-145)
[2024-10-25 06:37] LABS: Alanine Aminotransferase 56 U/L (12-78); Aspartate Amino Transferase 39 U/L (17-59); Blood Urea Nitrogen 18 mg/dl (9-20); Creatinine Clearance Estimated 162 mL/min (50-200); Estimated Glomerular Filt Rate 119 ml/min (>60); GFR (African American) 144 ML/MIN (>60)
[2024-10-25 06:38] LABS: Albumin/Globulin Ratio 1.5 (1.1-1.8); Alkaline Phosphatase 84 U/L (38-126); Bilirubin,Total 0.4 mg/dl (0.2-1.3); Calcium 9.7 mg/dl (8.4-10.2); Carbon Dioxide 31 mmol/L (22.0-30.0); Globulin 3.1 g/dL (1.3-3.2); Glucose 183 mg/dl (74-100); Lactic Acid 1.5 mmol/L (0.7-2.1); Lipase 63 U/L (23-300); Total Protein,Serum 7.9 g/dl (6.3-8.2)
--- NOTE | 2024-10-25 06:42 | PC.NURSE ---
Pt to CT scan via stretcher
--- NOTE | 2024-10-25 06:52 | PC.NURSE ---
Pt back from CT scan
[2024-10-25 06:56] LABS: Appearance,Urine CLEAR (Clear); Bilirubin,Urine Negative (Negative); Blood, Urine Negative (Negative); Color,Urine YELLOW (Yellow); Glucose,Urine (UA) TRACE (Negative); Ketones,Urine Negative (Negative); Leukocyte Esterase,Urine Negative (Negative); Nitrate,Urine Negative (Negative); PH,Urine 6.5 (5.0-8.5); Protein,Urine TRACE (Negative); Specific Gravity, Urine 1.025 (1.005-1.030)
--- NOTE | 2024-10-25 07:05 | PC.NURSE ---
rounded on pt at this time, no needs voiced. family at bedside, call light within reach.
--- NOTE | 2024-10-25 07:06 | CT_ITS ---
FINAL REPORT TECHNIQUE: Thin section axial images were obtained through the abdomen after intravenous contrast. Reconstruction images were obtained from the axial data. Exam was performed using dose reduction techniques. CLINICAL HISTORY: seizure, abd pain FINDINGS: The lung bases are clear. The liver is homogeneous. No focal liver lesion identified. The gallbladder is present. The spleen, adrenal glands, and pancreas are unremarkable. There is no hydronephrosis or solid renal mass. Abdominal GI tract is without acute abnormality. There is no abdominal lymphadenopathy or ascites. The pelvic solid organs are unremarkable. The pelvic portions of the GI tract, including the appendix, are without acute abnormality. There is no pelvic lymphadenopathy or ascites. No acute osseous abnormalities identified. IMPRESSION: No CT evidence of acute intra-abdominal or intrapelvic abnormality. Reviewed, Interpreted and Dictated by Benita Block MD Transcribed by Julia Butler Authenticated and [facility]
[2024-10-25 07:08] LABS: Mucus,Urine Trace /lpf; Squamous Epithelial Cell,Urine Occasional #/hpf (0-5)
[2024-10-25 07:10] LABS: RBC,Urine Occasional #/hpf (0-3)
[2024-10-25 07:15] LABS: Barbiturates Screen,Urine Negative ng/ml (<200); Benzodiazepines Screen,Urine Negative ng/ml (<200)
[2024-10-25 07:16] LABS: Amphetamine/Metha Screen,Urine Negative ng/ml (<1000); Cannabinoid Screen,Urine Negative ng/ml (<50)
[2024-10-25 07:17] LABS: Cocaine Screen,Urine Negative ng/ml (<300)
[2024-10-25 07:18] LABS: Methadone Screen,Urine Negative ng/ml (<300); Opiate Screen,Urine Negative ng/ml (<300)
[2024-10-25 07:19] LABS: Phencyclidine Screen,Urine Negative ng/ml (<25)
--- NOTE | 2024-10-25 07:33 | PC.NURSE ---
pt to CT via stretcher
[2024-10-25 07:40] LABS: Ethyl Alcohol < 10 mg/dl (0-10)
[2024-10-25] MEDS: IOPAMIDOL-370 (76%);100ML BOTTLE 75 ML IV (07:47)
[2024-10-25] MEDS: SODIUM CHLORIDE 0.9% 10ML SYR (RAD ONLY) 10 ML IV (07:47)
[2024-10-25 07:51] LABS: Troponin I < 0.01 ng/ml (0.00-0.034)
== END 2024-10-25 08:51 | disposition home or self-care (01) ==
PROVIDERS: Emergency Medicine; Emergency Provider Emergency Medicine
DX: R56.9 Unspecified convulsions (principal); R10.9 Unspecified abdominal pain; Z91.148 Patient's other noncompliance with medication regimen for other reason
CPT/HCPCS: 70450; 71045; 74177; 80053; 80307; 80320; 81001; 83605; 83690; 84484; 85025; 93005; 96361; 96374; 96375; 99285; G0480; J1953; J2405; J7120; Q9967

== ENCOUNTER 2024-11-14 11:43 | Emergency (ER) | payer MEDICAID, SELFPAY ==
[2024-11-14] VITALS (8 sets, daily range): BP systolic 94–127; BP diastolic 56–91; PULSE 90–107; RESP 13–23; TEMP 36.8; O2SAT 97–99; BMI 25.8
--- NOTE | 2024-11-14 11:49 | ECG_ITS ---
APPROVED REPORT Exam: Resting ECG HR:98 bpm ECG Measurements Heart Rate 98 AXES FL 147 P 58 QRSd 93 QRS 67 QT 336 T 35 QTc 391 Conclusion Sinus rhythm Electronically signed by : TRISHA HACKETT, 11/14/2024 14:46:28
--- NOTE | 2024-11-14 12:01 | HMH.EDGENADL ---
Discharge Plan Disposition Patient Disposition: Home, Self-Care Condition: Good Prescriptions Prescriptions: No Action levetiracetam [Keppra] 750 mg tablet 750 mg PO BID 10 Days Qty: 20 0RF Activity Restrictions/Add. Instructions Additional Instructions/Restrictions: Call your family doctor to establish care for this visit to the emergency department and schedule follow-up within 48 hours to ensure improvement. If you have any worsening of your condition or any other concerning signs or symptoms, return to the emergency department or your primary care doctor for further evaluation. Seizure precautions - do not do any of these activities until cleared by your neurologist: 1) avoid sleep deprivation 2) avoid open bodies of water and open flames 3) avoid swimming alone 4) take showers, do not take baths 5) avoid any situation where loss of consciousness may predispose to injury or 6) avoid driving Clinical Impressions Clinical Impression: Seizure Instructions Patient Instructions: DI for Seizure Disorder -- Adult, DI for Seizure (Not Epilepsy/Seizure Disorder), DI for Seizure Disorder -- Child Print Language Print Language: Estonian Discharge ED Provider: Filiberto Sethi General Adult HPI <KEYONA Mckinley - Last Filed: 11/14/24 17:53> General Chief complaint: Seizure Stated complaint: SEIZURE Time Seen by Provider: 11/14/24 11:58 Mode of Arrival: EMS Source of Information: Patient and EMS Description of Symptoms (Recalled from ER Triage Doc. by RN): pt came in today for seizure like activity and sore throat, pt is alox4 and not acting confused at all. History of Present Illness HPI narrative: Patient presents for evaluation of possible seizure. Patient himself is a poor historian and does not recall the events that occurred today. According to family members present and on the phone at the time of my exam the patient came back from a shower had a episode where he was unresponsive for period about 5 minutes. He did not stop breathing according to the family. They observe no tonic-clonic or jerking activity. Patient has a history of seizures on Keppra although patient does not know what type of seizures that he has and sees neurology in [place]. Review of our records here shows that he was seen twice in September for seizure-like activity and reported noncompliance with taking his Keppra however patient reports that he is taking it today. He denies any fever chills hemoptysis hematochezia melena nausea vomiting diarrhea. Related Data Previous Rx's ?Medication ?Instructions ?Recorded levetiracetam 750 mg tablet 750 mg PO BID 10 days #20 tabs 10/24/24 (Michelle) Allergies Allergy/AdvReac Type Severity Reaction Status Date / Time No Known Allergies Allergy Verified 10/25/24 07:24 [facility] <KEYONA Mckinley - Last Filed: 11/14/24 17:53> [facility] Disclaimer: The information contained in this section may have been updated after the patient was seen, as this information can be updated by other users. Medical History (Updated 11/14/24 @ 13:44 by KEYONA Mckinley) Seizure Social History Smoking Status: Never smoker alcohol intake: never current occupational status: other Travel in the last 8 weeks: None Have you lived/traveled outside [place] in past 30 days?: No Contact w/someone who lives/traveled outside US past 30 days?: No Exposure to someone with infectious disease in past 14 days?: No Do you have a fever (greater than 100.4 F or 38 C)?: No Have you tested positive for COVID-19: No Exposed to someone with COVID-19 in past 14 days?: No Do you have a sore throat?: No Do you have a cough?: No Do you have any weakness?: Yes Do you have any diarrhea?: No Are you experiencing any unusual bleeding?: No Do you have any muscle aches/pain?: No Do you have any abdominal pain?: No Are you experiencing loss of taste or smell?: No Other Medical History Have you received the Flu Vaccine for this season: No Have you received the Pneumonia Vaccine: No <KEYONA Mckinley - Last Filed: 11/14/24 17:53> ROS Obtained: Yes Systems reviewed as appropriate & no additional complaints except as documented Physical Exam <KEYONA Mckinley - Last Filed: 11/14/24 17:53> General General appearance: alert and in no apparent distress Respiratory Respiratory exam: Present normal lung sounds bilaterally Cardiovascular Cardiovascular exam: Present regular rate Neurological Exam Neurological exam: Present alert, oriented X3, CN II-XII intact and normal gait; Absent motor sensory deficit Medical Decision Making <KEYONA Mckinley - Last Filed: 11/14/24 17:53> Medical Records Medical records reviewed: Yes I reviewed the patient's medical records. Screening: Per USPSTF and CDC recommendations, given the prevalence of disease in our region, it is our hospital?s policy to screen for HIV and viral Hepatitis for all patients aged 18 and over and those with ongoing risk factors. Jim Inquiry Pt receiving controlled substance: No Vital Signs: 11/14/24 11:43 11/14/24 12:15 11/14/24 12:45 Temperature 98.3 F Temperature Source Oral Pulse Rate 94 H 105 H Pulse Rate [Left Radial] 94 H Respiratory Rate 20 14 15 Blood Pressure 127/84 124/70 Blood Pressure [Right Arm] 122/91 H Blood Pressure Mean 103 88 Blood Pressure Mean [Right Arm] 101 02 Sat by Pulse Oximetry 99 97 Oxygen Delivery Method Room Air 11/14/24 13:00 11/14/24 13:15 11/14/24 13:30 Temperature Temperature Source Pulse Rate 107 H 101 H 97 H Pulse Rate [Left Radial] Respiratory Rate 23 17 13 Blood Pressure 109/61 L 108/67 L 94/73 L Blood Pressure [Right Arm] Blood Pressure Mean 77 76 Blood Pressure Mean [Right Arm] 02 Sat by Pulse Oximetry 97 97 Oxygen Delivery Method Room Air 11/14/24 13:45 11/14/24 13:55 Temperature 98.2 F Temperature Source Oral Pulse Rate 97 H 90 Pulse Rate [Left Radial] Respiratory Rate 13 20 Blood Pressure 113/56 L 113/56 L Blood Pressure [Right Arm] Blood Pressure Mean 82 Blood Pressure Mean [Right Arm] 02 Sat by Pulse Oximetry 97 Oxygen Delivery Method Room Air Lab Data Lab results reviewed: Yes I reviewed the patient's lab results. Lab Results 11/14/24 11:45: WBC 7.4, RBC 5.91, Hgb 17.0, Hct 50.4, MCV 85.3, MCH 28.8, MCHC 33.7, RDW 12.4, Plt Count 393, MPV 9.7, Neut % (Auto) 58.8, Lymph % (Auto) 29.6, [place] % (Auto) 8.5, Eos % (Auto) 2.3, Baso % (Auto) 0.5, Neut # (Auto) 4.4, Lymph # (Auto) 2.2, [place] # (Auto) 0.6, Eos # (Auto) 0.2, Baso # (Auto) 0.0, Sodium 142, Potassium 4.2, Chloride 103, Carbon Dioxide 30, Anion Gap 13.2, BUN 16, Creatinine 0.70, Estimated Creat Clear 181, Estimated GFR 137, Est GFR ( Amer) 166, Glucose 118 H, Calcium 9.9, Total Bilirubin 0.5, AST 49, ALT 56, Alkaline Phosphatase 83, Total Creatine Kinase 101, Total Protein 8.7 H, Albumin 5.3 H, Globulin 3.4 H, Albumin/Globulin Ratio 1.6 11/14/24 12:15: VBG pH 7.37, VBG pCO2 48.6, VBG pO2 58.3 H, VBG HCO3 27.2, VBG Total CO2 28.7 H, VBG O2 Saturation 89.0 H, VBG Base Excess 1.9, VBG Lactic Acid 1.6 11/14/24 12:44: Urine Color Yellow, Urine Appearance Cloudy, Urine pH 8.0, Ur Specific [place] 1.025, Urine Protein 2+ A, Urine Glucose (UA) Negative, Urine Ketones Negative, Urine Blood Negative, Urine Nitrate Negative, Urine Bilirubin Negative, Urine Urobilinogen 0.2, Ur Leukocyte Esterase Negative, Urine RBC Occasional, Urine WBC Occasional, Ur Squamous Epith Cells None, Urine Bacteria 1+, Urine Opiates Screen Negative, Urine Methadone Screen Negative, Ur Barbituates Screen Negative, Ur Phencyclidine Scrn Negative, Ur Amphetamines Screen Negative, U Benzodiazepines Scrn Negative, Urine Cocaine Screen Negative, U Marijuana (THC) Screen Negative 11/14/24 : TSH 3.48, Free T4 Index 2.9 L, Thyroxine (T4) 9.4, T3 Uptake 31 11/14/24 11:45 11/14/24 11:45 Orders (Tests/Meds): ED MEDICATIONS Discontinued Medications Generic Name Dose Route Start Last Admin Trade Name Freq PRN Reason Stop Dose Admin Lactated Ringer's 1,000 mls @ 999 mls/hr 11/14/24 12:13 11/14/24 12:42 Lactated Ringer's 1000 Ml Bag IV 11/14/24 13:13 999 mls/hr .Q1H1M ONE Administration Levetiracetam 4,500 mg/ Sodium 145 mls @ 290 mls/hr 11/14/24 12:18 11/14/24 12:42 Chloride IV 11/14/24 12:19 290 mls/hr ONCE ONE Administration ORDERS Category Date Time Status CT head/brain wo con Stat Cat Scan 11/14/24 12:28 Completed CBC w/Auto Diff [Complete Blood Count Auto Diff] Stat Lab 11/14/24 11:45 Completed CK [Creatine Kinase] Stat Lab 11/14/24 11:45 Completed CMP [Comprehensive Metabolic Panel] Stat Lab 11/14/24 11:45 Completed Thyroid Panel Stat Lab 11/14/24 Completed UA [Urinalysis and Microscopic] Stat Lab 11/14/24 12:44 Completed UDS [Drug Screen,Urine] Stat Lab 11/14/24 12:44 Completed VBG [Venous Blood Gas] Stat RT 11/14/24 12:15 Completed Medical Decision Narrative: In summary patient is a 24-year-old male who presents to the emergency department for evaluation of reported seizure-like activity. Patient is hemodynamically stable with a blood pressure 122/91 heart rate of 94 with normal sinus rhythm on the bedside monitor breathing 20 times a minute satting at 99% on room air upon arrival, afebrile at 98.3. Physical exam is remarkable for a [place] Coma Score 15 although patient seems to have a lack of insight into his previous medical history is completely aware of the events after he came to consciousness. He has no localizing neurologic deficits or with normal breath sounds normal heart sounds soft abdomen without rebound or guarding or rigidity.. Differential diagnosis includes epileptiform seizure versus psychogenic seizure versus noncompliance of medication versus breakthrough seizure etc. I also considered electrolyte abnormality intracranial abnormality illicit substance use atypical presentation of ACS etc.. Initial workup will be conducted with hematologic labs CT scan of the head without contrast given these concerns. Initial interventions include crystalloid bolus and a Keppra load 4.5 g for now until NEIL complete. Initial workup reviewed by me and his hematologic labs are nonactionable CT scan of the head is unremarkable urines are bland and urine drug screen is negative. Upon repeat evaluation patient has remained with a [place] Coma Score 15 with no repeat activity and no complaints. Given this I feel patient is appropriate for discharge with close follow-up with his neurologist and strict return precautions. <Filiberto Sethi MD - Last Filed: 11/16/24 15:59> Vital Signs: 11/14/24 11:43 11/14/24 12:15 11/14/24 12:45 Temperature 98.3 F Temperature Source Oral Pulse Rate 94 H 105 H Pulse Rate [Left Radial] 94 H Respiratory Rate 20 14 15 Blood Pressure 127/84 124/70 Blood Pressure [Right Arm] 122/91 H Blood Pressure Mean 103 88 Blood Pressure Mean [Right Arm] 101 02 Sat by Pulse Oximetry 99 97 Oxygen Delivery Method Room Air 11/14/24 13:00 11/14/24 13:15 11/14/24 13:30 Temperature Temperature Source Pulse Rate 107 H 101 H 97 H Pulse Rate [Left Radial] Respiratory Rate 23 17 13 Blood Pressure 109/61 L 108/67 L 94/73 L Blood Pressure [Right Arm] Blood Pressure Mean 77 76 Blood Pressure Mean [Right Arm] 02 Sat by Pulse Oximetry 97 97 Oxygen Delivery Method Room Air 11/14/24 13:45 11/14/24 13:55 Temperature 98.2 F Temperature Source Oral Pulse Rate 97 H 90 Pulse Rate [Left Radial] Respiratory Rate 13 20 Blood Pressure 113/56 L 113/56 L Blood Pressure [Right Arm] Blood Pressure Mean 82 Blood Pressure Mean [Right Arm] 02 Sat by Pulse Oximetry 97 Oxygen Delivery Method Room Air Lab Data Lab Results 11/14/24 11:45: WBC 7.4, RBC 5.91, Hgb 17.0, Hct 50.4, MCV 85.3, MCH 28.8, MCHC 33.7, RDW 12.4, Plt Count 393, MPV 9.7, Neut % (Auto) 58.8, Lymph % (Auto) 29.6, [place] % (Auto) 8.5, Eos % (Auto) 2.3, Baso % (Auto) 0.5, Neut # (Auto) 4.4, Lymph # (Auto) 2.2, [place] # (Auto) 0.6, Eos # (Auto) 0.2, Baso # (Auto) 0.0, Sodium 142, Potassium 4.2, Chloride 103, Carbon Dioxide 30, Anion Gap 13.2, BUN 16, Creatinine 0.70, Estimated Creat Clear 181, Estimated GFR 137, Est GFR ( Amer) 166, Glucose 118 H, Calcium 9.9, Total Bilirubin 0.5, AST 49, ALT 56, Alkaline Phosphatase 83, Total Creatine Kinase 101, Total Protein 8.7 H, Albumin 5.3 H, Globulin 3.4 H, Albumin/Globulin Ratio 1.6 11/14/24 12:15: VBG pH 7.37, VBG pCO2 48.6, VBG pO2 58.3 H, VBG HCO3 27.2, VBG Total CO2 28.7 H, VBG O2 Saturation 89.0 H, VBG Base Excess 1.9, VBG Lactic Acid 1.6 11/14/24 12:44: Urine Color Yellow, Urine Appearance Cloudy, Urine pH 8.0, Ur Specific [place] 1.025, Urine Protein 2+ A, Urine Glucose (UA) Negative, Urine Ketones Negative, Urine Blood Negative, Urine Nitrate Negative, Urine Bilirubin Negative, Urine Urobilinogen 0.2, Ur Leukocyte Esterase Negative, Urine RBC Occasional, Urine WBC Occasional, Ur Squamous Epith Cells None, Urine Bacteria 1+, Urine Opiates Screen Negative, Urine Methadone Screen Negative, Ur Barbituates Screen Negative, Ur Phencyclidine Scrn Negative, Ur Amphetamines Screen Negative, U Benzodiazepines Scrn Negative, Urine Cocaine Screen Negative, U Marijuana (THC) Screen Negative 11/14/24 : TSH 3.48, Free T4 Index 2.9 L, Thyroxine (T4) 9.4, T3 Uptake 31 Orders (Tests/Meds): ED MEDICATIONS Discontinued Medications Generic Name Dose Route Start Last Admin Trade Name Freq PRN Reason Stop Dose Admin Lactated Ringer's 1,000 mls @ 999 mls/hr 11/14/24 12:13 11/14/24 12:42 Lactated Ringer's 1000 Ml Bag IV 11/14/24 13:13 999 mls/hr .Q1H1M ONE Administration Levetiracetam 4,500 mg/ Sodium 145 mls @ 290 mls/hr 11/14/24 12:18 11/14/24 12:42 Chloride IV 11/14/24 12:19 290 mls/hr ONCE ONE Administration ORDERS Category Date Time Status CT head/brain wo con Stat Cat Scan 11/14/24 12:28 Completed CBC w/Auto Diff [Complete Blood Count Auto Diff] Stat Lab 11/14/24 11:45 Completed CK [Creatine Kinase] Stat Lab 11/14/24 11:45 Completed CMP [Comprehensive Metabolic Panel] Stat Lab 11/14/24 11:45 Completed Thyroid Panel Stat Lab 11/14/24 Completed UA [Urinalysis and Microscopic] Stat Lab 11/14/24 12:44 Completed UDS [Drug Screen,Urine] Stat Lab 11/14/24 12:44 Completed VBG [Venous Blood Gas] Stat RT 11/14/24 12:15 Completed ECG Data Tracing #1: I reviewed this ECG and interpreted as documented below: (Sinus rhythm 98 bpm with AR interval 147, QRS 93, QTc 391. No acute ischemic change with normal axis) Medical Decision Narrative: In summary patient is a 24-year-old male who presents to the emergency department for evaluation of reported seizure-like activity. Patient is hemodynamically stable with a blood pressure 122/91 heart rate of 94 with normal sinus rhythm on the bedside monitor breathing 20 times a minute satting at 99% on room air upon arrival, afebrile at 98.3. Physical exam is remarkable for a [place] Coma Score 15 although patient seems to have a lack of insight into his previous medical history is completely aware of the events after he came to consciousness. He has no localizing neurologic deficits or with normal breath sounds normal heart sounds soft abdomen without rebound or guarding or rigidity.. Differential diagnosis includes epileptiform seizure versus psychogenic seizure versus noncompliance of medication versus breakthrough seizure etc. I also considered electrolyte abnormality intracranial abnormality illicit substance use atypical presentation of ACS etc.. Initial workup will be conducted with hematologic labs CT scan of the head without contrast given these concerns. Initial interventions include crystalloid bolus and a Keppra load 4.5 g for now until NEIL complete. Initial workup reviewed by me and his hematologic labs are nonactionable CT scan of the head is unremarkable urines are bland and urine drug screen is negative. Upon repeat evaluation patient has remained with a [place] Coma Score 15 with no repeat activity and no complaints. Given this I feel patient is appropriate for discharge with close follow-up with his neurologist and strict return precautions. I was consulted by the HELIO, and we discussed the complexity of the problems being addressed. I approved the treatment and management plan for this patient's care in the Emergency Department, thus performing a substantive portion of the medical decision making. Filiberto Sethi MD Critical Care <KEYONA Mckinley - Last Filed: 11/14/24 17:53> Critical Care Time Critical Care Time: Yes Attestation: On 03/04/25, the high probability of a clinically significant, sudden or life threatening deterioration of the following system(s) required my full and direct attention, intervention and personal management. The time I documented below is in addition to time spent performing reported procedures but includes the following listed in this critical care notation. Total Time Total Critical Care Time: 35
[2024-11-14 12:23] LABS: Basophils % 0.5 % (0.1-2.0); Eosinophils # 0.2 K/mm3 (0.0-0.4); Eosinophils % 2.3 % (0.1-12.0); Hematocrit 50.4 % (42.0-52.0); Lymphocytes # 2.2 K/mm3 (0.7-4.5); Lymphocytes % 29.6 % (10-50); Mean Corpuscular HGB Conc 33.7 g/dL (31.8-35.4); Mean Corpuscular Hemoglobin 28.8 pg (27.0-31.2); Mean Corpuscular Volume 85.3 fl (80-94); Mean Platelet Volume 9.7 fl (7.4-10.4); Monocytes # 0.6 K/mm3 (0.1-1.0); Monocytes % 8.5 % (1.7-9.3); Neutrophils # 4.4 K/mm3 (1.8-7.8); Neutrophils % 58.8 % (37.0-80.0); Platelet Count 393 K/mm3 (142-424); Red Blood Count 5.91 M/mm3 (4.60-6.20); Red Cell Distribution Width 12.4 % (11.5-17.5); White Blood Count 7.4 K/mm3 (4.8-10.8)
[2024-11-14 12:28] LABS: Alanine Aminotransferase 56 U/L (12-78); Albumin Level 5.3 g/dl (3.5-5.0); Albumin/Globulin Ratio 1.6 (1.1-1.8); Alkaline Phosphatase 83 U/L (38-126); Anion Gap 13.2 mEq/L (5-15); Aspartate Amino Transferase 49 U/L (17-59); Bilirubin,Total 0.5 mg/dl (0.2-1.3); Blood Urea Nitrogen 16 mg/dl (9-20); Calcium 9.9 mg/dl (8.4-10.2); Carbon Dioxide 30 mmol/L (22.0-30.0); Chloride 103 mmol/L (98-107); Creatine Kinase 101 U/L (55-170); Creatinine Clearance Estimated 181 mL/min (50-200); Estimated Glomerular Filt Rate 137 ml/min (>60); GFR (African American) 166 ML/MIN (>60); Globulin 3.4 g/dL (1.3-3.2); Glucose 118 mg/dl (74-100); Potassium 4.2 mmoL/L (3.5-5.1); Sodium 142 mmol/L (136-145); Total Protein,Serum 8.7 g/dl (6.3-8.2)
--- NOTE | 2024-11-14 12:28 | CT_ITS ---
FINAL REPORT TECHNIQUE: Noncontrast exam This study was performed with techniques to keep radiation doses as low as reasonably achievable, (ALARA). Individualized dose reduction techniques using automated exposure control or adjustment of mA and/or kV according to the patient''s size were employed. CLINICAL HISTORY: Seizure COMPARISON: 10/25/2024 FINDINGS: No abnormal density is seen. Ventricles are normal. There is no hemorrhage. No mass effect is seen. Bone windows show no evidence of fracture. IMPRESSION: No acute findings Reviewed, Interpreted and Dictated by Alfredo Darling MD Transcribed by Julia Butler Authenticated and [facility]
[2024-11-14 12:38] LABS: Lactate Venous 1.6 mmol/L (0.4-2.0); VBG Base Excess 1.9 mmol/L (-2.4-2.3); VBG HCO3 27.2 mmol/L (23-30); VBG PCO2 48.6 mmol/L (35-51); VBG PH 7.37 mmol/L (7.31-7.41); VBG PO2 58.3 mmol/L (28-40); VBG Total CO2 28.7 mmol/L (23-27)
[2024-11-14] MEDS: LACTATED RINGERS 1000ML 1,000 ML 999 ML IV (12:42)
[2024-11-14] MEDS: levETIRAcetam 4,500 MG in 0.9 % SODIUM CHLORIDE 100 ML 290 MG IV (12:42)
[2024-11-14 12:49] LABS: Microscopic, Urine URINE MICROSCOPIC (MICROSCOPIC)
[2024-11-14 12:51] LABS: Appearance,Urine CLOUDY (Clear); Bilirubin,Urine Negative (Negative); Blood, Urine Negative (Negative); Color,Urine YELLOW (Yellow); Glucose,Urine (UA) Negative (Negative); Ketones,Urine Negative (Negative); Leukocyte Esterase,Urine Negative (Negative); Nitrate,Urine Negative (Negative); Protein,Urine 2+ (Negative); Specific Gravity, Urine 1.025 (1.005-1.030); Urobilinogen,Urine 0.2 EU/dl (0.2)
[2024-11-14 13:00] LABS: Triiodothryronine (T3) Uptake 31 % (23.5-40.5)
[2024-11-14 13:01] LABS: Free Thyroxine Index 2.9 ug/dL (5.93-13.13); T4 (Thyroxine) 9.4 ug/dl (5.53-11.0)
[2024-11-14 13:01] LABS: Bacteria,Urine 1+ /lpf; RBC,Urine Occasional #/hpf (0-3); WBC,Urine Occasional #/hpf (0-3)
[2024-11-14 13:05] LABS: Benzodiazepines Screen,Urine Negative ng/ml (<200)
[2024-11-14 13:06] LABS: Amphetamine/Metha Screen,Urine Negative ng/ml (<1000); Barbiturates Screen,Urine Negative ng/ml (<200)
[2024-11-14 13:09] LABS: Methadone Screen,Urine Negative ng/ml (<300)
[2024-11-14 13:10] LABS: Cannabinoid Screen,Urine Negative ng/ml (<50); Cocaine Screen,Urine Negative ng/ml (<300)
[2024-11-14 13:11] LABS: Opiate Screen,Urine Negative ng/ml (<300)
[2024-11-14 13:12] LABS: Phencyclidine Screen,Urine Negative ng/ml (<25)
[2024-11-14 13:14] LABS: Thyroid Stimulating Hormone 3.48 uIU/mL (0.465-4.68)
== END 2024-11-14 13:56 | disposition home or self-care (01) ==
PROVIDERS: Physician Assistant; Emergency Provider Emergency Medicine
DX: R56.9 Unspecified convulsions (principal); J02.9 Acute pharyngitis, unspecified
CPT/HCPCS: 70450; 80053; 80307; 81001; 82550; 82803; 84436; 84443; 84479; 85025; 93005; 96361; 96374; 99285; J1953; J7120

== ENCOUNTER 2024-11-27 00:51 | Emergency (ER) | payer MEDICAID, SELFPAY ==
--- NOTE | 2024-11-27 00:52 | HMH.EDGENADL ---
Discharge Plan Disposition Patient Disposition: Home, Self-Care Prescriptions Prescriptions: New diazepam 5-7.5-10 mg kit 10 mg [place] .q10 PRN (Reason: seizure activity) Qty: 1 0RF Rx Instructions: Administer 1 dose rectally for generalized seizure lasting longer than a few minutes. No Action levetiracetam [Keppra] 750 mg tablet 750 mg PO BID 10 Days Qty: 20 0RF Referrals Follow up/Referrals: Soniya Lawrence MD [Staff Physician] - See instructions Activity Restrictions/Add. Instructions Additional Instructions/Restrictions: Please follow-up with your primary care provider. Please return to the emergency department if you develop any new or worsening symptoms or become concerned for your health. Consider follow-up with our neurologist. I sent a prescription for rescue rectal diazepam Clinical Impressions Clinical Impression: Generalized seizure Instructions Patient Instructions: DI for Seizure Disorder -- Adult, DI for Seizure (Not Epilepsy/Seizure Disorder), DI for Seizure Disorder -- Child Print Language Print Language: Micronesian Discharge ED Provider: Germán Lacey General Adult HPI General Chief complaint: Seizure Stated complaint: seizure Time Seen by Provider: 11/27/24 00:52 History of Present Illness HPI narrative: 24-year-old male with history of epilepsy on Keppra 1500 mg twice daily presents for seizure. History obtained from EMS girlfriend and patient. Patient had a seizure lasting approximately 10 minutes. Generalized tonic-clonic patient does not remember the events. And significant postictal period after according to EMS. On arrival to the ER patient is awake, interactive, partially oriented. Improving. Patient and girlfriend report medication compliance, no recent medication changes. No recent fever or illness or other recent issues. Patient was seated at the time of the seizure and sustained no trauma. Patient has 2-3 seizures a month. Related Data Previous Rx's ?Medication ?Instructions ?Recorded levetiracetam 750 mg tablet 750 mg PO BID 10 days #20 tabs 10/24/24 (Keppra) diazepam 5 mg-7.5 mg-10 mg rectal 10 mg [place] .q10 PRN seizure activity 11/27/24 kit 2 doses #1 ea Allergies Allergy/AdvReac Type Severity Reaction Status Date / Time No Known Allergies Allergy Verified 10/25/24 07:24 [facility] Disclaimer: The information contained in this section may have been updated after the patient was seen, as this information can be updated by other users. Medical History (Updated 11/27/24 @ 01:47 by Germán Lacey MD) Seizure Social History Smoking Status: Unknown if ever smoked alcohol intake: never current occupational status: other Travel in the last 8 weeks: None Have you lived/traveled outside [place] in past 30 days?: No Contact w/someone who lives/traveled outside US past 30 days?: No Exposure to someone with infectious disease in past 14 days?: No Do you have a fever (greater than 100.4 F or 38 C)?: No Have you tested positive for COVID-19: No Exposed to someone with COVID-19 in past 14 days?: No Do you have a sore throat?: No Do you have a cough?: No Do you have any weakness?: No Do you have any diarrhea?: No Are you experiencing any unusual bleeding?: No Do you have any muscle aches/pain?: No Do you have any abdominal pain?: No Are you experiencing loss of taste or smell?: No Other Medical History Have you received the Flu Vaccine for this season: No Have you received the Pneumonia Vaccine: No ROS Obtained: Yes All systems reviewed & no additional complaints except as documented Physical Exam General General appearance: alert and in no apparent distress Head Head exam: atraumatic and normocephalic Eye Eye exam: Present normal appearance, PERRL and EOMI ENT ENT exam: Present normal oropharynx and normal external ear exam Neck Neck exam: Present normal inspection and full ROM Chest Chest inspection: Present normal inspection and symmetric chest wall rise; Absent tenderness Respiratory Respiratory exam: Present normal lung sounds bilaterally; Absent respiratory distress Cardiovascular Cardiovascular exam: Present regular rate and normal rhythm Abdominal Exam Abdominal exam: Present soft; Absent distention, tenderness or guarding Extremities Exam Extremities exam: Present normal inspection; Absent edema or joint swelling Back Exam Back exam: Present normal inspection; Absent tenderness Neurological Exam Neurological exam: Present alert and oriented X3; Absent motor sensory deficit Psychiatric Psychiatric exam: Present normal affect and normal mood Skin Skin exam: Present warm, dry and normal color Lymphatic Lymphatic Findings: no adenopathy Medical Decision Making Medical Records Medical records reviewed: Yes I reviewed the patient's medical records. Screening: Per USPSTF and CDC recommendations, given the prevalence of disease in our region, it is our hospital?s policy to screen for HIV and viral Hepatitis for all patients aged 18 and over and those with ongoing risk factors. Jim Inquiry Pt receiving controlled substance: No Jim was queried for this patient: No Vital Signs: 11/27/24 00:54 11/27/24 01:03 Temperature 97.7 F 98.0 F Temperature Source Oral Pulse Rate 77 Pulse Rate [Left] 78 Respiratory Rate 13 18 Blood Pressure 128/82 Blood Pressure [Right Arm] 149/109 H Blood Pressure Mean [Right Arm] 122 02 Sat by Pulse Oximetry 99 99 Oxygen Delivery Method Room Air Room Air Lab Data Lab results reviewed: Yes I reviewed the patient's lab results. Lab Results 11/27/24 00:51: WBC 10.3, RBC 5.88, Hgb 17.0, Hct 49.4, MCV 84.0, MCH 28.9, MCHC 34.4, RDW 12.5, Plt Count 403, MPV 9.0, Neut % (Auto) 52.5, Lymph % (Auto) 34.5, [place] % (Auto) 9.4 H, Eos % (Auto) 2.6, Baso % (Auto) 0.7, Neut # (Auto) 5.4, Lymph # (Auto) 3.6, [place] # (Auto) 1.0, Eos # (Auto) 0.3, Baso # (Auto) 0.1, Sodium 138, Potassium 3.9, Chloride 100, Carbon Dioxide 30, Anion Gap 11.9, BUN 20, Creatinine 0.80, Estimated Creat Clear 171, Estimated GFR 118, Est GFR ( Amer) 143, Glucose 104 H, Calcium 9.9, Magnesium 1.9, Total Bilirubin 0.5, AST 43, ALT 61, Alkaline Phosphatase 83, Total Protein 8.5 H, Albumin 5.1 H, Globulin 3.4 H, Albumin/Globulin Ratio 1.5 11/27/24 : HIV Ag/Ab Combo Qual Negative 11/27/24 00:51 11/27/24 00:51 Orders (Tests/Meds): ED MEDICATIONS Discontinued Medications Generic Name Dose Route Start Last Admin Trade Name Freq PRN Reason Stop Dose Admin Lactated Ringer's 1,000 mls @ 999 mls/hr 11/27/24 01:00 03/17/25 01:34 Lactated Ringer's 1000 Ml Bag IV 11/27/24 02:00 999 mls/hr .Q1H1M CHECO Administration Levetiracetam 2,000 mg/ Sodium 120 mls @ 240 mls/hr 11/27/24 01:21 11/27/24 01:25 Chloride IV 11/27/24 01:22 240 mls/hr ONCE ONE Administration ORDERS Category Date Time Status CBC w/Auto Diff [Complete Blood Count Auto Diff] Stat Lab 11/27/24 00:51 Completed CMP [Comprehensive Metabolic Panel] Stat Lab 11/27/24 00:51 Completed HIV Combo Stat Lab 11/27/24 Completed Hepatitis C Ab Qual. W/ RFX Stat Lab 11/27/24 Received Levetiracetam (Keppra) Stat Lab 11/27/24 00:51 Received MAG [Magnesium] Stat Lab 11/27/24 00:51 Completed Medical Decision Narrative: 24-year-old male with history of epilepsy on Keppra presents for breakthrough seizure. History was obtained via interactive discussion with patient, EMS, girlfriend. On arrival, patient is mildly postictal but rapidly improving, moving all extremities spontaneously. Full physical exam performed and significant for no significant physical exam abnormalities or signs of trauma Differential includes but is not limited to breakthrough seizure, medication noncompliance, nonepileptic spell, electrolyte derangement,. Patient was given 2 g of Keppra, 1 L IV fluid for symptomatic management and correction of underlying abnormalities. Workup initiated including CBC CMP Keppra level. On re-evaluation, patient [remains afebrile, HD stable.] Laboratory workup independently interpreted by me and significant for no significant electrolyte derangement, no significant leukocytosis. Keppra level not yet back.. CT imaging and urinalysis was considered, but deemed unnecessary due to history of epilepsy, no concerning findings on history or exam. Given patient history, exam and workup, patient's presentation most likely represents breakthrough seizure. Recommend patient call and talk with his neurologist about upping his Keppra or potentially changing/adding medications. Given the number for our neurologist to see if they can follow-up here because they recently moved here. I also discharged him with a prescription for rescue rectal Diastat.. Procedures Risk/Benefits of Procedure(s) Were Explained: Yes Critical Care Critical Care Time Critical Care Time: Yes Attestation: On 11/27/24, the high probability of a clinically significant, sudden or life threatening deterioration of the following system(s) required my full and direct attention, intervention and personal management. The time I documented below is in addition to time spent performing reported procedures but includes the following listed in this critical care notation. Total Time Total Critical Care Time: 30
[2024-11-27 00:54] VITALS: BP 149/109; PULSE 78; RESP 13; TEMP 36.5; O2SAT 99; BMI 29.5
[2024-11-27 01:03] VITALS: BP 128/82; PULSE 77; RESP 18; TEMP 36.7; O2SAT 99
[2024-11-27 01:05] LABS: Basophils # 0.1 K/mm3 (0-0.2); Basophils % 0.7 % (0.1-2.0); Eosinophils # 0.3 K/mm3 (0.0-0.4); Eosinophils % 2.6 % (0.1-12.0); Hematocrit 49.4 % (42.0-52.0); Lymphocytes # 3.6 K/mm3 (0.7-4.5); Lymphocytes % 34.5 % (10-50); Mean Corpuscular HGB Conc 34.4 g/dL (31.8-35.4); Mean Corpuscular Hemoglobin 28.9 pg (27.0-31.2); Monocytes % 9.4 % (1.7-9.3); Neutrophils # 5.4 K/mm3 (1.8-7.8); Neutrophils % 52.5 % (37.0-80.0); Platelet Count 403 K/mm3 (142-424); Red Blood Count 5.88 M/mm3 (4.60-6.20); Red Cell Distribution Width 12.5 % (11.5-17.5); White Blood Count 10.3 K/mm3 (4.8-10.8)
[2024-11-27 01:07] LABS: Albumin Level 5.1 g/dl (3.5-5.0); Chloride 100 mmol/L (98-107); Sodium 138 mmol/L (136-145)
[2024-11-27 01:08] LABS: Potassium 3.9 mmoL/L (3.5-5.1)
[2024-11-27 01:10] LABS: Alanine Aminotransferase 61 U/L (12-78); Albumin/Globulin Ratio 1.5 (1.1-1.8); Alkaline Phosphatase 83 U/L (38-126); Anion Gap 11.9 mEq/L (5-15); Aspartate Amino Transferase 43 U/L (17-59); Bilirubin,Total 0.5 mg/dl (0.2-1.3); Blood Urea Nitrogen 20 mg/dl (9-20); Carbon Dioxide 30 mmol/L (22.0-30.0); Creatinine Clearance Estimated 171 mL/min (50-200); Estimated Glomerular Filt Rate 118 ml/min (>60); GFR (African American) 143 ML/MIN (>60); Globulin 3.4 g/dL (1.3-3.2); Total Protein,Serum 8.5 g/dl (6.3-8.2)
[2024-11-27 01:11] LABS: Calcium 9.9 mg/dl (8.4-10.2); Glucose 104 mg/dl (74-100); Magnesium 1.9 mg/dl (1.6-2.3)
[2024-11-27] MEDS: levETIRAcetam 2,000 MG in 0.9 % SODIUM CHLORIDE 100 ML 240 MG IV (01:25)
[2024-11-27] MEDS: LACTATED RINGERS 1000ML 1,000 ML 999 ML IV (01:34)
[2024-11-27 02:01] LABS: HIV Combo NEGATIVE (Negative)
[2024-11-27 02:10] LABS: Hepatitis C Ab Qual. W/ RFX NEGATIVE (Negative)
[2024-11-27 02:14] VITALS: BP 128/69; PULSE 80; RESP 20; TEMP 36.8; O2SAT 99
[2024-11-30 16:22] LABS: Levetiracetam (Keppra) 17.3 ug/mL (10.0-40.0)
== END 2024-11-27 02:20 | disposition home or self-care (01) ==
PROVIDERS: Emergency Provider Emergency Medicine; PCP Nurse Practitioner
DX: R56.9 Unspecified convulsions (principal)
CPT/HCPCS: 80053; 80177; 83735; 85025; 86803; 87389; 96361; 96365; 99283; J1953; J7120

== ENCOUNTER 2024-12-01 23:49 | Emergency (ER) | payer MEDICAID, SELFPAY ==
[2024-12-01 23:50] VITALS: BP 148/89; PULSE 78; RESP 18; TEMP 36.8; O2SAT 99; BMI 27.3
--- NOTE | 2024-12-01 23:55 | ECG_ITS ---
APPROVED REPORT Exam: Resting ECG HR:89 bpm ECG Measurements Heart Rate 89 AXES TN 160 P 59 QRSd 92 QRS 58 QT 350 T 42 QTc 397 Conclusion SINUS RHYTHM NORMAL ECG Electronically signed by : AMRITA MENDOZA, 12/02/2024 06:18:44
[2024-12-02 00:15] VITALS: BP 147/89; PULSE 76; RESP 16; O2SAT 99
[2024-12-02] MEDS: LACTATED RINGERS 1000ML 1,000 ML 999 ML IV (00:17)
[2024-12-02 00:18] LABS: Basophils # 0.1 K/mm3 (0-0.2); Basophils % 0.7 % (0.1-2.0); Eosinophils # 0.2 K/mm3 (0.0-0.4); Eosinophils % 2.5 % (0.1-12.0); Hematocrit 45.1 % (42.0-52.0); Hemoglobin 15.5 g/dL (14.1-18.0); Lymphocytes # 2.8 K/mm3 (0.7-4.5); Lymphocytes % 29.8 % (10-50); Mean Corpuscular HGB Conc 34.4 g/dL (31.8-35.4); Mean Corpuscular Hemoglobin 29.5 pg (27.0-31.2); Mean Corpuscular Volume 85.9 fl (80-94); Mean Platelet Volume 8.6 fl (7.4-10.4); Monocytes # 0.8 K/mm3 (0.1-1.0); Monocytes % 7.9 % (1.7-9.3); Neutrophils # 5.6 K/mm3 (1.8-7.8); Neutrophils % 58.8 % (37.0-80.0); Platelet Count 362 K/mm3 (142-424); Red Blood Count 5.25 M/mm3 (4.60-6.20); Red Cell Distribution Width 12.5 % (11.5-17.5); White Blood Count 9.5 K/mm3 (4.8-10.8)
[2024-12-02 00:21] LABS: Albumin Level 4.9 g/dl (3.5-5.0); Chloride 103 mmol/L (98-107); Potassium 4.3 mmoL/L (3.5-5.1); Sodium 139 mmol/L (136-145)
[2024-12-02 00:24] LABS: Alanine Aminotransferase 64 U/L (12-78); Albumin/Globulin Ratio 1.6 (1.1-1.8); Alkaline Phosphatase 70 U/L (38-126); Anion Gap 5.3 mEq/L (5-15); Aspartate Amino Transferase 47 U/L (17-59); Bilirubin,Total 0.5 mg/dl (0.2-1.3); Blood Urea Nitrogen 21 mg/dl (9-20); Carbon Dioxide 35 mmol/L (22.0-30.0); Creatinine Clearance Estimated 163 mL/min (50-200); Estimated Glomerular Filt Rate 118 ml/min (>60); GFR (African American) 143 ML/MIN (>60); Total Protein,Serum 7.9 g/dl (6.3-8.2)
[2024-12-02 00:24] LABS: Coronavirus 19, PCR Not Detected (NotDetected); Influenza A, PCR Not Detected (NotDetected); Influenza B, PCR Not Detected (NotDetected)
[2024-12-02 00:25] LABS: Calcium 9.7 mg/dl (8.4-10.2); Glucose 109 mg/dl (74-100)
[2024-12-02 00:29] LABS: Ethyl Alcohol < 10 mg/dl (0-10)
[2024-12-02 00:45] VITALS: BP 130/88; PULSE 75; RESP 28; O2SAT 98
--- NOTE | 2024-12-02 00:46 | ED_ITS ---
Discharge Plan Disposition Patient Disposition: Home, Self-Care Condition: Good Prescriptions Prescriptions: New levetiracetam [Keppra] 1,000 mg tablet 1,000 mg PO Q12H 14 Days Qty: 28 0RF No Action levetiracetam [Keppra] 750 mg tablet 750 mg PO BID 10 Days Qty: 20 0RF diazepam 5-7.5-10 mg kit 10 mg [place] .q10 PRN (Reason: seizure activity) Qty: 1 0RF Rx Instructions: Administer 1 dose rectally for generalized seizure lasting longer than a few minutes. diazepam 5-7.5-10 mg kit 10 mg ME ONCE PRN (Reason: seizure activity) Qty: 1 0RF Activity Restrictions/Add. Instructions Additional Instructions/Restrictions: You were evaluated in the ER and are appropriate for discharge at this time. Follow-up with neurology as previously directed. Stop your previous Keppra dose and start the increased dose of Keppra as directed. business support specialist and take the previously prescribed diazepam that is waiting for you at the pharmacy. Call your primary care doctor for immediate reevaluation. They can also adjust your keppra prescription. Return to the ER with new, worsening, or otherwise concerning symptoms. Clinical Impressions Clinical Impression: Breakthrough seizure Instructions Patient Instructions: DI for Seizure Disorder -- Adult Print Language Print Language: Norwegian Discharge ED Provider: Gely Carey Adult HPI General Chief complaint: Seizure Stated complaint: Seizure Time Seen by Provider: 12/02/24 00:02 Mode of Arrival: Ambulatory Source of Information: Relative Description of Symptoms (Recalled from ER Triage Doc. by RN): pt family member reports that he has a seizure in the car a couple of minutes ago and brought him straight here. no medication changes or recent stressors. pt has not seen a neurologist to adjust medications due to needing a primary care referral History of Present Illness HPI narrative: 24-year-old male with known seizure disorder and history of noncompliance with seizure medications presents to the ER with generalized tonic-clonic activity. Patient is here with family member who reports they were leaving another family member's house when the patient started saying he felt funny like he was going to have a seizure and started burping which is a classic prodromal symptom for the patient. He then had a short-lived generalized tonic-clonic seizure. This was approximately 20 minutes prior to arrival. Family at bedside reports that patient has been prescribed medication to go in the nose when he has seizures but they have not yet picked this up so he did not receive this. Patient is currently on levetiracetam 750 mg twice daily and is taking it as directed. They have not yet been able to follow-up with a neurologist due to not having established care with a primary care doctor. Family bedside reports that patient establish care with primary care doctor earlier today and are hoping to hear from a neurologist soon. Patient has had multiple seizures over the last month since becoming noncompliant with his medications but reports since that first seizure, has been reportedly fully compliant. Reportedly patient has not smoked, drink, or use any illicit substances. Family does report that anytime he seems to have a lot of sugar intake he seems to have seizure. That includes tonight. They thought he may be diabetic. Patient has not been specifically ill recently though significant other reports he was sneezing yesterday. No other concerns at this time. Patient did not strike his head. He has not yet back to baseline but is in his normal postictal period at this time. Related Data Previous Rx's ?Medication ?Instructions ?Recorded levetiracetam 750 mg tablet 750 mg PO BID 10 days #20 tabs 10/24/24 (Keppra) diazepam 5 mg-7.5 mg-10 mg rectal 10 mg ME .q10 PRN seizure activity 11/27/24 kit 2 doses #1 ea diazepam 5 mg-7.5 mg-10 mg rectal 10 mg ME ONCE PRN seizure activity 11/28/24 kit 2 doses #1 ea levetiracetam 1,000 mg tablet 1,000 mg PO Q12H 2 weeks #28 tabs 12/02/24 (Keppra) Allergies Allergy/AdvReac Type Severity Reaction Status Date / Time No Known Allergies Allergy Verified 10/25/24 07:24 [facility] Disclaimer: The information contained in this section may have been updated after the patient was seen, as this information can be updated by other users. Medical History (Updated 12/02/24 @ 01:24 by Gely Carey MD) Seizure Social History Smoking Status: Never smoker alcohol intake: never current occupational status: other Travel in the last 8 weeks: None Other Medical History Have you received the Flu Vaccine for this season: No Have you received the Pneumonia Vaccine: No ROS Obtained: Yes Systems reviewed as appropriate & no additional complaints except as documented Per HPI Physical Exam General General appearance: alert Comment: Looking around the room but postictal, not yet following commands Head Head exam: atraumatic and normocephalic Eye Eye exam: Present PERRL and EOMI ENT ENT exam: Present mucous membranes moist Neck Neck exam: Present normal inspection and full ROM Chest Chest inspection: Present symmetric chest wall rise Respiratory Respiratory exam: Present normal lung sounds bilaterally; Absent respiratory distress, wheezes or stridor Cardiovascular Cardiovascular exam: Present regular rate and normal rhythm Abdominal Exam Abdominal exam: Present soft; Absent distention or tenderness Extremities Exam Extremities exam: Present full ROM Neurological Exam Neurological exam: Present alert and other (Depressed GCS on arrival but has been actively improving even during my exam. Moving all extremities spontaneously.) Psychiatric Psychiatric exam: Present normal affect and normal mood Skin Skin exam: Present warm and dry Medical Decision Making Medical Records Medical records reviewed: Yes I reviewed the patient's medical records. Screening: Per USPSTF and CDC recommendations, given the prevalence of disease in our region, it is our hospital?s policy to screen for HIV and viral Hepatitis for all patients aged 18 and over and those with ongoing risk factors. MR Comment: Patient was seen on 11/27 for generalized seizure in the ER. Review of records demonstrates patient was prescribed rectal diazepam at that time. He was also referred to Dr. Lawrence. Jim Inquiry Pt receiving controlled substance: No Vital Signs: 12/01/24 23:50 12/02/24 00:15 12/02/24 00:45 Temperature 98.2 F Temperature Source Temporal Artery Scan Pulse Rate 76 75 Pulse Rate [Right] 78 Respiratory Rate 18 16 28 H Blood Pressure 147/89 H 130/88 Blood Pressure [Right Arm] 148/89 H Blood Pressure Mean [Right Arm] 108 02 Sat by Pulse Oximetry 99 99 98 Oxygen Delivery Method Room Air Lab Data Lab Results 12/02/24 00:00: WBC 9.5, RBC 5.25, Hgb 15.5, Hct 45.1, MCV 85.9, MCH 29.5, MCHC 34.4, RDW 12.5, Plt Count 362, MPV 8.6, Neut % (Auto) 58.8, Lymph % (Auto) 29.8, [place] % (Auto) 7.9, Eos % (Auto) 2.5, Baso % (Auto) 0.7, Neut # (Auto) 5.6, Lymph # (Auto) 2.8, [place] # (Auto) 0.8, Eos # (Auto) 0.2, Baso # (Auto) 0.1, Sodium 139, Potassium 4.3, Chloride 103, Carbon Dioxide 35 H, Anion Gap 5.3, BUN 21 H, Creatinine 0.80, Estimated Creat Clear 163, Estimated GFR 118, Est GFR ( Amer) 143, Glucose 109 H, Calcium 9.7, Magnesium 1.9, Total Bilirubin 0.5, AST 47, ALT 64, Alkaline Phosphatase 70, Total Protein 7.9, Albumin 4.9, Globulin 3.0, Albumin/Globulin Ratio 1.6, Plasma/Serum Alcohol < 10 12/02/24 00:20: SARS-CoV-2 (PCR) Not detected, Influenza A Untype (PCR) Not detected, Influenza Type B (PCR) Not detected 12/02/24 01:08: Urine Color Yellow, Urine Appearance Clear, Urine pH 6.5, Ur Specific [place] 1.025, Urine Protein 30, Urine Glucose (UA) Negative, Urine Ketones Negative, Urine Blood Negative, Urine Nitrate Negative, Urine Bilirubin Negative, Urine Urobilinogen 0.2, Ur Leukocyte Esterase Negative, Urine RBC None, Urine WBC Occasional, Ur Squamous Epith Cells 3-5, Urine Bacteria Trace, Urine Opiates Screen Negative, Urine Methadone Screen Negative, Ur Barbituates Screen Negative, Ur Phencyclidine Scrn Negative, Ur Amphetamines Screen Negative, U Benzodiazepines Scrn Negative, Urine Cocaine Screen Negative, U Marijuana (THC) Screen Negative 12/02/24 00:00 12/02/24 00:00 Orders (Tests/Meds): ED MEDICATIONS Discontinued Medications Generic Name Dose Route Start Last Admin Trade Name Freq PRN Reason Stop Dose Admin Levetiracetam 3,000 mg/ Sodium 130 mls @ 260 mls/hr 12/02/24 00:02 12/02/24 00:17 Chloride IV 12/02/24 00:03 260 mls/hr ONCE ONE Administration Lactated Ringer's 1,000 mls @ 999 mls/hr 12/02/24 00:12 12/02/24 00:17 Lactated Ringer's 1000 Ml Bag IV 12/02/24 01:12 999 mls/hr .Q1H1M ONE Administration ORDERS Category Date Time Status CBC w/Auto Diff [Complete Blood Count Auto Diff] Stat Lab 12/02/24 00:00 Completed CMP [Comprehensive Metabolic Panel] Stat Lab 12/02/24 00:00 Completed Ethanol [Ethyl Alcohol] Stat Lab 12/02/24 00:00 Completed Magnesium Stat Lab 12/02/24 00:00 Completed Rapid PCR Covid and Flu A/B Stat Lab 12/02/24 00:20 Completed UDS [Drug Screen,Urine] Stat Lab 12/02/24 01:08 Completed Urinalysis and Microscopic Stat Lab 12/02/24 01:08 Completed ECG Data Tracing #1: I reviewed this ECG and interpreted as documented below: (Personal interpretation) Normal sinus rhythm, rate 89, normal axis, normal ME and QTc, no STEMI, no focal abnormalities ECG initial impression date: 12/01/24 ECG initial impression time: 23:57 Medical Decision Narrative: In summary, this 24-year-old male with history of seizure which is not at goal therapy presents to the emergency department today with seizure. On initial evaluation patient is alert and will track me around the room but not yet following commands, moving all extremities spontaneously, cardiopulmonary exam benign, patient is obviously postictal but is actively recovering even during my exam. There is no evidence of trauma or other acute abnormality on exam. Differential diagnosis includes but is not limited to viral syndrome, electrolyte abnormality, medication noncompliance, I considered the possibility of intracranial lesion given patient's known history of seizures and recent series of breakthrough seizures as well as neuroimaging approximately 1 month ago that was reassuring, I do not believe CT head is indicated at this time though was considered by me. Based on these concerns, I ordered serum labs. Patient received IV Keppra load and IV fluids for treatment. Labs personally reviewed demonstrate CBC normal, CMP with mild prerenal azotemia patient is already receiving IV fluids, UA negative for findings of infection, UDS negative, EtOH negative, COVID and flu negative. Patient was monitored in the ER and did not have any further seizure activity or other concerning changes. He has completely returned to baseline and is a GCS 15 with no abnormalities or neurologic deficits. He is appropriate for discharge at this time. Family and patient are concerned that they do not have follow-up yet scheduled with neurology. Review of previous records demonstrates that a few days ago well on his 750 mg twice daily Keppra, his Keppra level was well within the normal range. I believe patient may benefit from slightly increased dose of Keppra. I prescribed 1000 mg twice daily and gave the patient and family at bedside instructions on his new prescription. I only prescribed a short course of this encouraging them to follow closely with his PCP and neurology. Patient and family are comfortable with this plan. I also gave him explicit instructions to case picker the rectal diazepam that has been previously prescribed. Patient was given instructions on symptomatic monitoring and management, follow up instructions, and return precautions for the emergency department. Patient indicated understanding and was discharged in stable condition. Critical Care Critical Care Time Critical Care Time: No
[2024-12-02 01:14] LABS: Magnesium 1.9 mg/dl (1.6-2.3)
[2024-12-02 01:25] LABS: Microscopic, Urine URINE MICROSCOPIC (MICROSCOPIC)
[2024-12-02 01:28] LABS: Appearance,Urine CLEAR (Clear); Bilirubin,Urine Negative (Negative); Blood, Urine Negative (Negative); Color,Urine YELLOW (Yellow); Glucose,Urine (UA) Negative (Negative); Ketones,Urine Negative (Negative); Leukocyte Esterase,Urine Negative (Negative); Nitrate,Urine Negative (Negative); PH,Urine 6.5 (5.0-8.5); Protein,Urine 30 (Negative); Specific Gravity, Urine 1.025 (1.005-1.030); Urobilinogen,Urine 0.2 EU/dl (0.2)
[2024-12-02 01:43] LABS: Amphetamine/Metha Screen,Urine Negative ng/ml (<1000); Barbiturates Screen,Urine Negative ng/ml (<200)
[2024-12-02 01:44] LABS: Benzodiazepines Screen,Urine Negative ng/ml (<200)
[2024-12-02 01:45] LABS: Cannabinoid Screen,Urine Negative ng/ml (<50); Cocaine Screen,Urine Negative ng/ml (<300)
[2024-12-02 01:46] LABS: Methadone Screen,Urine Negative ng/ml (<300); Opiate Screen,Urine Negative ng/ml (<300)
[2024-12-02 01:47] LABS: Phencyclidine Screen,Urine Negative ng/ml (<25)
[2024-12-02 02:08] LABS: Bacteria,Urine Trace /lpf; WBC,Urine Occasional #/hpf (0-3)
[2024-12-02 03:12] VITALS: BP 128/77; PULSE 78; RESP 20; TEMP 36.6; O2SAT 97
== END 2024-12-02 03:16 | disposition home or self-care (01) ==
PROVIDERS: Emergency Provider Emergency Medicine
DX: G40.919 Epilepsy, unspecified, intractable, without status epilepticus (principal)
CPT/HCPCS: 80053; 80307; 80320; 81001; 83735; 85025; 87636; 93005; 96361; 96365; 99284; J1953; J7120